=== PATIENT | female | born 1935 | race Caucasian/White ===

== ENCOUNTER 2018-02-11 22:25 | Emergency (ER) | payer OTHER ==
--- OUTSIDE RECORDS SUMMARY | 2018-02-11 22:28 | XMS REPORT | Clinical Summary ---
:1935 Author Organization [facility] Address [address] [place] [address] Care Team Providers Name Role Phone Serafin Kim MD Primary Care Provider Allergies Active Allergy Reactions Severity Noted Date Comments Codeine GI Intolerance 08/12/2017 "vomiting" Morphine (Pf) GI Intolerance Medium 05/02/2017 "vomiting" Current Medications Prescription Sig. Disp. Refills Start Date End Date Status amLODIPine (NORVASC) Take 5 mg by Active 5 mg tablet mouth daily. atorvastatin Take 10 mg by Active (LIPITOR) 10 MG mouth every tablet evening. carvedilol (COREG) Take 12.5 mg Active 12.5 MG tablet by mouth 2 (two) times a day with meals. dronedarone (MULTAQ) Take 400 mg by Active 400 mg tablet mouth 2 (two) times a day with meals. levothyroxine Take 75 mcg by Active (SYNTHROID, LEVOXYL) mouth every 75 mcg tablet morning. lisinopril Take 20 mg by Active (PRINIVIL,ZESTRIL) mouth daily. 20 mg tablet metFORMIN Take 1,000 mg Active (GLUCOPHAGE) 1,000 by mouth 2 mg tablet (two) times a day with meals. omeprazole Take 20 mg by Active (PriLOSEC) 20 MG mouth daily. capsule Take 1 tablet Active vit,[id number] by mouth c 29 mg iron- 1 mg daily. tablet per tablet ascorbic acid, Take 1,000 mg Active vitamin C, (VITAMIN by mouth C) 500 MG tablet daily. ibuprofen Take 200 mg by Active (ADVIL,MOTRIN) 200 mouth every 6 MG tablet (six) hours as needed for mild pain. cetirizine (ZyrTEC) Take 10 mg by Active 10 MG tablet mouth nightly. L. RHAMNOSUS Take 1 tablet Active GG/INULIN by mouth (CULTURELLE daily. PROBIOTICS ORAL) acetaminophen Take 650 mg by Active (TYLENOL) 325 MG mouth every 4 tablet (four) hours as needed. albuterol (PROAIR Inhale 2 puffs Active HFA,PROVENTIL every 6 (six) HFA,VENTOLIN HFA) 90 hours as mcg/actuation needed for inhaler wheezing. ZOFRAN 4 mg Take 1 tablet 30 tablet 0 09/16/2017 Active tabletIndications: (4 mg total) Nausea by mouth every 6 (six) hours as needed for nausea or vomiting. levocetirizine Take 5 mg by Discontinued (XYZAL) 5 MG tablet mouth every 8 evening. aspirin (ECOTRIN) 81 Take 81 mg by Discontinued MG enteric coated mouth daily. 8 tablet ipratropium 2 sprays into Discontinued (ATROVENT) 0.03 % each nostril 8 nasal spray every 12 (twelve) hours. traMADol (ULTRAM) 50 Take 1 tablet 10 tablet 0 09/15/2017 mg tablet (50 mg total) 8 by mouth every 6 (six) hours as needed for moderate pain for up to 5 days. calcium carbonate Chew 2 tablets 120 tablet 0 09/15/2017 (TUMS) 200 mg (1,000 mg 8 calcium (500 mg) total) 2 (two) chewable tablet times a day for 30 days. aspirin (ECOTRIN) 81 Take 1 tablet 30 tablet 0 09/17/2017 MG enteric coated (81 mg total) 8 tablet by mouth daily for 30 days. Active Problems Problem Noted Date Primary hyperparathyroidism 09/14/2017 Osteopenia of both hips 08/12/2017 Hypercalcemia 06/20/2017 Hyperparathyroidism 06/20/2017 MGUS (monoclonal gammopathy of unknown significance) 06/20/2017 Acquired hypothyroidism 06/20/2017 Encounters Date Type Specialty Care Team Description 09/27/2017 Office Visit General Surgery Tisha Blair, Surgery follow-up MD examination (Primary Dx) 09/16/2017 Orders Only General Surgery Farmer, Nausea (Primary Dx) Saprina 09/14/2017 [facility] General Surgery Tisha Blair, Hyperparathyroidism, - Encounter MD primary 09/15/2017 09/14/2017 Anesthesia Event General Surgery Marcos Higuera MD 09/14/2017 Procedure Pass General Surgery 09/14/2017 Surgery General Surgery Tisha Blair, PARATHYROIDECTOMY W/ RIGHT THYROID LOBECTOMY 08/12/2017 Pre-Admit Testing Pre-Admission Tisha Blair, Preop testing ( Primary Appointment Testing MD Dx) 08/12/2017 Office Visit General Surgery Tisha Blair, Hyperparathyroidism ( Primary Dx); Acquired hypothyroidism; Hypercalcemia; Osteopenia of both hips 08/12/2017 Anesthesia Event Pre-Admission Dayna Hurd, LIVE IN COMPANION 07/28/2017 Telephone Endocrinology Fortunato Bone MD 07/18/2017 [facility] Radiology Fortunato Bone MD 07/18/2017 [facility] Radiology Fortunato Bone MD 07/12/2017 Orders Only Endocrinology Ann Chanel MD 07/01/2017 Orders Only Endocrinology Demetrio Ulloa MA (Primary Dx) 06/24/2017 Orders Only Endocrinology Fortunato Bone MD 06/20/2017 Office Visit Endocrinology Fortunato Bone Hyperparathyroidism ( Primary Dx); MD Edwardo MGUS (monoclonal gammopathy of unknown significance); Hypercalcemia; Acquired hypothyroidism 05/02/2017 [facility] Radiology Christensen, Spinal stenosis of lumbar Encounter nickolas Arauz, unspecified whether neurogenic claudication present 05/02/2017 [facility] Radiology Christensen, Spinal stenosis of lumbar Encounter nickolas Arauz, unspecified whether neurogenic claudication present 04/26/2017 Transcribe Orders Radiology Amparo Spinal stenosis of lumbar nickolas Arauz, unspecified whether neurogenic claudication present (Primary Dx) after 02/10/2017 Family History Medical History Relation Name Comments Cancer Father 1952- colon Stroke Mother Relation Name Status Comments Father Mother smoker Social History Tobacco Use Types Packs/Day Years Used Date Never Smoker Smokeless Tobacco: Never Used Tobacco Cessation: Counseling Given: No Alcohol Use Drinks/Week oz/Week Comments No Sex Assigned at Date Recorded Not on file Last Filed Vital Signs Vital Sign Reading Time Taken Blood Pressure 125/58 09/27/2017 2:42 PM CDT Pulse 70 09/27/2017 2:42 PM CDT Temperature 36.4 C (97.5 F) 09/27/2017 2:42 PM CDT Respiratory Rate 18 09/15/2017 7:52 AM CDT Oxygen Saturation 92% 09/27/2017 2:42 PM CDT Inhaled Oxygen Concentration - - Weight 77.6 kg (171 lb) 09/27/2017 2:42 PM CDT Height 167.6 cm (5' 6") 09/27/2017 2:42 PM CDT Body Mass Index 27.6 09/27/2017 2:42 PM CDT Plan of Treatment Health Maintenance Due Date Last Done Comments SHINGRIX VACCINE (#1) 12/03/1987 ZOSTER VACCINE 1997 PNEUMOCOCCAL POLYSACCHARIDE VACCINE AGE 65 AND OVER 2002 PNEUMOCOCCAL-13 2002 INFLUENZA VACCINE 12/28/2017 Implants Implanted Type Area Boiler Washer Device Expiration Model / Identifier Date Serial / Lot Clip Ligtng Weck Hemoclip Plus W/ Tape Ti Sm - [id number] Medical N/A: WECK CLOSURE [id number] / Implanted: 09/14/2017 (Quantity not on file) Clips for Neck SYSTEMS / Internal Use Clip Ligtng Weck Hemoclip Plus W/ Tape Ti Med - [id number] Medical N/A: [employer] [id number] / Implanted: 09/14/2017 (Quantity not on file) Clips for Neck / Internal Use Procedures Procedure Name Priority Date/Time Associated Comments Diagnosis POC GLUCOSE Routine 09/15/2017 7:53 Results for this AM CDT procedure are in the results section. ZZESTIMATED GFR Routine 09/15/2017 1:40 Results for this AM CDT procedure are in the results section. MAGNESIUM LEVEL Routine 09/15/2017 1:40 Results for this AM CDT procedure are in the results section. BASIC METABOLIC PANEL Routine 09/15/2017 1:40 Results for this AM CDT procedure are in the results section. PARATHYROID HORMONE Routine 09/15/2017 1:40 Results for this AM CDT procedure are in the results section. POC GLUCOSE Routine 09/14/2017 9:42 Results for this PM CDT procedure are in the results section. POC GLUCOSE Routine 09/14/2017 5:08 Results for this PM CDT procedure are in the results section. POC GLUCOSE Routine 09/14/2017 1:45 Results for this PM CDT procedure are in the results section. CALCIUM LEVEL Routine 09/14/2017 12:40 Results for this PM CDT procedure are in the results section. POC GLUCOSE Routine 09/14/2017 12:06 Results for this PM CDT procedure are in the results section. PARATHYROID HORMONE STAT 09/14/2017 11:21 Results for this AM CDT procedure are in the results section. PTH INTRAOPERATIVE STAT 09/14/2017 9:45 Results for this AM CDT procedure are in the results section. PTH INTRAOPERATIVE STAT 09/14/2017 9:39 Results for this AM CDT procedure are in the results section. SURGICAL PATHOLOGY Routine 09/14/2017 9:38 Results for this REQUEST AM CDT procedure are in the results section. PTH INTRAOPERATIVE STAT 09/14/2017 9:34 Results for this AM CDT procedure are in the results section. ARTERIAL LINE Routine 09/14/2017 9:17 AM CDT Procedure Note - Vielka Cutler CRNA - 09/14/2017 9:17 AM CDT Arterial line Performed by: VIELKA CUTLER Authorized by: MARCOS HIGUERA Patient Location: OR Start Time: 09/14/2017 8:40 AM End Time: 09/14/2017 8:44 AM Staff: Anesthesiologist: MARCOS HIGUERA Performed by: Anesthesiologist Pre-procedure: patient identified, IV checked, site and side verified, risks and benefits discussed, procedure verified, surgical consent complete, patient position confirmed, monitors and equipment checked and pre-op evaluation complete MSBT: antiseptic used, all elements of maximal sterile barrier technique followed, hand hygiene performed, cap/gown used by other personnel and solutions labeled TIme Out Performed: 09/14/2017 8:40 AM Indications: Indications comment: Intraoperative PTH levels Anesthesia: Anesthesia: General Procedure Details: Arterial Line placement: Placed post induction Line placement site: Radial Line placement side: Right Arterial line gauge: 20 G Number of attempts: 1 Ultrasound guidance used: Yes Post-procedure: Post-procedure: Sterile dressing applied Post procedure circulation, sensation, movement: Normal and unchanged Patient tolerance: Patient tolerated the procedure well with no immediate complications WI AN ELECTIVE ENDOTRACHEAL AIRWAY Routine 09/14/2017 9:08 AM CDT Procedure Note - Vielka Cutler CRNA - 09/14/2017 9:08 AM CDT Airway Date/Time: 09/14/2017 8:38 AM Performed by: VIELKA CUTLER Authorized by: MARCOS HIGUERA Location: OR Urgency: Elective Difficult Airway: No Preoxygenated with 100% O2: Yes C-spine Precautions Maintained Throughout: Yes Mask Ventilation: Not attempted Final Airway Type: Endotracheal airway Final Endotracheal Airway: ETT Technique Used: Direct laryngoscopy Insertion Site: Oral Blade Type: Metzger Laryngoscope Blade/Videolaryngoscope Blade Size: 2 ETT Size (mm): 7.0 Measured from: Gums ETT to Gums (cm): 21 Placement Verified by: CO2 detection, direct visualization and equal breath sounds Laryngoscopic view: Grade I - full view of glottis Rapid Sequence Induction (RSI): Yes Number of Attempts at Approach: 1 After reaching the OR, patient complained of nausea. Waited 3-4 minutes and nausea had abated somewhat but did RSI to minimize risk of aspiration. Easy quick intubation with no secretions noted in oropharynx. EXPLORATION, NECK, WITH 09/14/2017 8:00 AM Hyperparathyroidism, primary PARATHYROIDECTOMY CDT Case Notes POSSIBLE EXTENDED RECOVERY NEEDED; INTRA OP ULTRA SOUND EST 4.5 HRS Special Needs POSSIBLE EXTENDED RECOVERY NEEDED; INTRA OP ULTRA SOUND EST 4.5 HRS POC GLUCOSE Routine 09/14/2017 7:56 Results for AM CDT this procedure are in the results section. PTH INTRAOPERATIVE STAT 09/14/2017 7:50 Results for AM CDT this procedure are in the results section. TYPE AND SCREEN STAT 09/14/2017 7:50 Results for AM CDT this procedure are in the results section. ZZESTIMATED GFR Routine 08/12/2017 4:18 Results for PM CDT this procedure are in the results section. HEMOGLOBIN A1C Routine 08/12/2017 4:18 Preop testing Results for PM CDT this procedure are in the results section. COMPREHENSIVE Routine 08/12/2017 4:18 Preop testing Results for METABOLIC PANEL PM CDT this procedure are in the results section. HC COMPLETE BLD COUNT Routine 08/12/2017 4:18 Preop testing Results for W/AUTO DIFF PM CDT this procedure are in the results section. NM PARATHYROID PLANAR Routine 07/18/2017 11:20 Hyperparathyroidism Results for W SPECT AND CT AM TRENCH TRIMMER FINE this procedure are in the results section. BONE DENSITY Routine 07/12/2017 12:00 AM TRENCH TRIMMER FINE CALCIUM LEVEL, URINE, Routine 06/24/2017 10:31 Results for 24 HOUR AM TRENCH TRIMMER FINE this procedure are in the results section. T4, FREE Routine 06/20/2017 11:35 Acquired hypothyroidism Results for AM TRENCH TRIMMER FINE this procedure are in the results section. THYROID STIMULATING Routine 06/20/2017 11:35 Acquired hypothyroidism Results for HORMONE AM TRENCH TRIMMER FINE this procedure are in the results section. IONIZED CALCIUM Routine 06/20/2017 11:35 Hyperparathyroidism Results for AM TRENCH TRIMMER FINE Hypercalcemia this procedure are in the results section. BASIC METABOLIC PANEL Routine 06/20/2017 11:35 Hyperparathyroidism Results for AM TRENCH TRIMMER FINE Hypercalcemia this procedure are in the results section. PARATHYROID HORMONE Routine 06/20/2017 11:35 Hyperparathyroidism Results for AM TRENCH TRIMMER FINE Hypercalcemia this procedure are in the results section. CT POST MYELOGRAM Routine 05/02/2017 11:50 Spinal stenosis of lumbar Results for LUMBAR AM TRENCH TRIMMER FINE region, unspecified this procedure whether neurogenic are in the claudication present results section. IR MYELOGRAM LUMB Routine 05/02/2017 10:55 Spinal stenosis of lumbar Results for INCL INJ W S&I AM TRENCH TRIMMER FINE region, unspecified this procedure whether neurogenic are in the claudication present results section. after 02/10/2017 Results POC glucose (09/15/2017 7:53 AM)Only the most recent of6 resultswithin the time period is included. POC glucose 112 (H) 65 - 99 mg/dL [facility] DEPARTMENT OF PATHOLOGY AND Comment: GENOMIC MEDICINE [facility] Notified RN Meter ID: [id number] Linux System Engineer: Mumtaz Chang Organization Address City/State/Zipcode Phone Number [facility] DEPARTMENT OF PATHOLOGY AND [address] [place] [address] [place] MEDICINE Estimated GFR (09/15/2017 1:40 AM)Only the most recent of2 resultswithin the time period is included. GFR Non Af Amer 81 mL/min/1.73 m2 [facility] DEPARTMENT OF PATHOLOGY AND GENOMIC MEDICINE GFR Af Amer >90 mL/min/1.73 m2 [facility] DEPARTMENT OF Comment: PATHOLOGY AND GENOMIC Chronic kidney disease: <60 mL/min/1.73m2 MEDICINE Kidney failure: <15 mL/min/1.73m2 The estimated GFR is calculated from the IDMS-traceable Modification of Diet in Renal Disease Equation. The accuracy of the calculation is poor when the creatinine is normal. Calculated values >90 mL/min/1.73m2 are not reported. This equation has not been validated in children (<18 years), women, the elderly (>70 years), or ethnic groups other than Caucasians and Americans. Specimen Plasma specimen Performing Organization Address City/[facility] Phone Number [facility] DEPARTMENT OF PATHOLOGY AND [address] [place] [address] Parathyroid hormone (09/15/2017 1:40 AM)Only the most recent of3 resultswithin the time period is included. PTH <15 (A) 15 - 65 pg/mL [facility] DEPARTMENT OF PATHOLOGY AND GENOMIC MEDICINE Specimen Blood Performing Organization Address [facility] Phone Number [facility] DEPARTMENT OF PATHOLOGY AND [address] [place] [address] Magnesium level (09/15/2017 1:40 AM) Magnesium 1.5 (L) 1.6 - 2.4 mg/dL [facility] DEPARTMENT OF PATHOLOGY AND GENOMIC MEDICINE Specimen Plasma specimen Performing Organization Address [facility] Phone Number [facility] DEPARTMENT OF PATHOLOGY AND [address] [place] [address] Basic metabolic panel (09/15/2017 1:40 AM)Only the most recent of2 resultswithin the time period is included. Sodium 136 135 - 148 mEq/L [facility] DEPARTMENT OF PATHOLOGY AND GENOMIC MEDICINE Potassium 4.2 3.5 - 5.0 mEq/L [facility] DEPARTMENT OF PATHOLOGY AND GENOMIC MEDICINE Chloride 97 (L) 98 - 112 mEq/L [facility] DEPARTMENT OF PATHOLOGY AND GENOMIC MEDICINE CO2 28 24 - 31 mEq/L [facility] DEPARTMENT OF PATHOLOGY AND GENOMIC MEDICINE Anion gap 11 7 - 15 mEq/L [facility] DEPARTMENT OF PATHOLOGY Comment: [facility] Starting from August , anion gap calculation no longer incorporates potassium. Please note the change. BUN 10 8 - 23 mg/dL [facility] DEPARTMENT OF PATHOLOGY AND GENOMIC MEDICINE Creatinine 0.7 0.5 - 0.9 mg/dL [facility] DEPARTMENT OF PATHOLOGY AND GENOMIC MEDICINE Glucose 100 (H) 65 - 99 mg/dL [facility] DEPARTMENT OF PATHOLOGY AND GENOMIC MEDICINE Calcium 8.9 8.8 - 10.2 mg/dL [facility] DEPARTMENT OF PATHOLOGY AND GENOMIC MEDICINE Specimen Plasma specimen Performing Organization Address [facility] Phone Number [facility] DEPARTMENT OF PATHOLOGY AND [address] [place] [address] Calcium level (09/14/2017 12:40 PM) Calcium 9.7 8.8 - 10.2 mg/dL [facility] DEPARTMENT OF PATHOLOGY AND GENOMIC MEDICINE Specimen Plasma specimen Performing Organization Address City/[facility] Phone Number [facility] DEPARTMENT OF PATHOLOGY AND [address] [place] [address] GENOMIC MEDICINE PTH intraoperative (09/14/2017 9:45 AM)Only the most recent of4 resultswithin the time period is included. Intraoperative PTH 20 15 - 65 pg/mL [facility] DEPARTMENT OF PATHOLOGY AND GENOMIC MEDICINE Performing Organization Address City/[facility] Phone Number [facility] DEPARTMENT OF PATHOLOGY AND [address] [place] [address] GENOMIC MEDICINE Surgical pathology request (09/14/2017 9:38 AM) [facility] DEPARTMENT OF PATHOLOGY AND GENOMIC MEDICINE Surgical pathology report See link below for PDF [facility] DEPARTMENT OF Lab Report PATHOLOGY AND GENOMIC MEDICINE Result status This is Final Report to [facility] DEPARTMENT OF [id number] PATHOLOGY AND GENOMIC MEDICINE Performing Organization Address [facility] Phone Number [facility] DEPARTMENT OF PATHOLOGY AND [address] [place] [address] GENOMIC MEDICINE Type and screen (09/14/2017 7:50 AM) ABO grouping A [facility] DEPARTMENT OF PATHOLOGY AND GENOMIC MEDICINE Rh type POS [facility] DEPARTMENT OF PATHOLOGY AND GENOMIC MEDICINE Antibody screen (gel) NEG [facility] DEPARTMENT OF PATHOLOGY AND GENOMIC MEDICINE Specimen Blood Performing Organization Address [facility] Phone Number [facility] DEPARTMENT OF PATHOLOGY AND [address] [place] [address] GENOMIC MEDICINE CBC with platelet and differential (08/12/2017 4:18 PM) WBC 6.77 4.50 - 11.00 k/uL [facility] DEPARTMENT OF PATHOLOGY AND GENOMIC MEDICINE RBC 4.21 4.20 - 5.50 m/uL [facility] DEPARTMENT OF PATHOLOGY AND GENOMIC MEDICINE HGB 13.3 12.0 - 16.0 g/dL [facility] DEPARTMENT OF PATHOLOGY AND GENOMIC MEDICINE HCT 41.7 37.0 - 47.0 % [facility] DEPARTMENT OF PATHOLOGY AND GENOMIC MEDICINE MCV 99.0 82.0 - 100.0 fL [facility] DEPARTMENT OF PATHOLOGY AND GENOMIC MEDICINE MCH 31.6 27.0 - 34.0 pg [facility] DEPARTMENT OF PATHOLOGY AND GENOMIC MEDICINE MCHC 31.9 31.0 - 37.0 g/dL [facility] DEPARTMENT OF PATHOLOGY AND GENOMIC MEDICINE RDW - SD 56.9 (H) 37.0 - 55.0 fL [facility] DEPARTMENT OF PATHOLOGY AND GENOMIC MEDICINE MPV 9.8 8.8 - 13.2 fL [facility] DEPARTMENT OF PATHOLOGY AND GENOMIC MEDICINE Platelet count 260 150 - 400 k/uL [facility] DEPARTMENT OF PATHOLOGY AND GENOMIC MEDICINE Nucleated RBC 0.00 /100 WBC [facility] DEPARTMENT OF PATHOLOGY AND GENOMIC MEDICINE Neutrophils 38.7 (L) 39.0 - 69.0 % [facility] DEPARTMENT OF PATHOLOGY AND GENOMIC MEDICINE Lymphocytes 47.3 (H) 25.0 - 45.0 % [facility] DEPARTMENT OF PATHOLOGY AND GENOMIC MEDICINE Monocytes 8.3 0.0 - 10.0 % [facility] DEPARTMENT OF PATHOLOGY AND GENOMIC MEDICINE Eosinophils 5.0 0.0 - 5.0 % [facility] DEPARTMENT OF PATHOLOGY AND GENOMIC MEDICINE Basophils 0.4 0.0 - 1.0 % [facility] DEPARTMENT OF PATHOLOGY AND GENOMIC MEDICINE Immature granulocytes 0.3Comment: 0.0 - 1.0 % [facility] DEPARTMENT OF "Immature PATHOLOGY AND GENOMIC granulocytes" MEDICINE (promyelocytes, myelocytes, metamyelocytes) Specimen Blood Performing Organization Address City/State/Zipcode Phone Number [facility] DEPARTMENT OF PATHOLOGY AND [address] [place] [phone] [facility] Hemoglobin A1c (08/12/2017 4:18 PM) Hemoglobin A1C 5.8 (H) 4.0 - 5.6 % [facility] DEPARTMENT OF PATHOLOGY Comment: AND GENOMIC MEDICINE HbA1c cutoffs for diagnosing diabetes: 4.0% - 5.6%=normal 5.7% - 6.4%=increased risk for diabetes (prediabetes) >=6.5%=diabetes Goals for glycemic control (ADA 2016) < 7.0%Target for non adults with diabetes. More or less stringent targets may be appropriate for individual patients. <7.5% Target for Children and adolescents with type 1 diabetes. Specimen Blood Performing Organization Address City/State/Zipcode Phone Number [facility] DEPARTMENT OF PATHOLOGY AND [address] [place] [phone] [place] [facility] Comprehensive metabolic panel (08/12/2017 4:18 PM) Sodium 139 135 - 148 mEq/L [facility] DEPARTMENT OF PATHOLOGY AND GENOMIC MEDICINE Potassium 4.8 3.5 - 5.0 mEq/L [facility] DEPARTMENT OF PATHOLOGY AND GENOMIC MEDICINE Chloride 100 98 - 112 mEq/L [facility] DEPARTMENT OF PATHOLOGY AND GENOMIC MEDICINE CO2 26 24 - 31 mEq/L [facility] DEPARTMENT OF PATHOLOGY AND GENOMIC MEDICINE Anion gap 13 7 - 15 mEq/L [facility] DEPARTMENT OF Comment: PATHOLOGY AND GENOMIC Starting from August , anion gap calculation MEDICINE no longer incorporates potassium. Please note the change. BUN 16 8 - 23 mg/dL [facility] DEPARTMENT OF PATHOLOGY AND GENOMIC MEDICINE Creatinine 0.8 0.5 - 0.9 mg/dL [facility] DEPARTMENT OF PATHOLOGY AND GENOMIC MEDICINE Glucose 87 65 - 99 mg/dL [facility] DEPARTMENT OF PATHOLOGY AND GENOMIC MEDICINE Calcium 11.0 (H) 8.8 - 10.2 mg/dL [facility] DEPARTMENT OF PATHOLOGY AND GENOMIC MEDICINE Protein 7.1 6.3 - 8.3 g/dL [facility] DEPARTMENT OF Comment: PATHOLOGY AND GENOMIC 4.6-7.0 g/dL MEDICINE 1 week 4.4-7.6 g/dL 7 months-1year5.1-7.3 g/dL 1-2 years5.6-7.5 g/dL >3 years6.0-8.0 g/dL 18-150 6.3-8.3 g/dL Albumin 3.8 3.5 - 5.0 g/dL [facility] DEPARTMENT OF PATHOLOGY AND GENOMIC MEDICINE A/G ratio 1.2 0.7 - 3.8 [facility] DEPARTMENT OF PATHOLOGY AND GENOMIC MEDICINE Alkaline phosphatase 76 35 - 104 U/L [facility] DEPARTMENT OF PATHOLOGY AND GENOMIC MEDICINE AST 25 10 - 35 U/L [facility] DEPARTMENT OF PATHOLOGY AND GENOMIC MEDICINE ALT 33 5 - 50 U/L [facility] DEPARTMENT OF PATHOLOGY AND GENOMIC MEDICINE Total bilirubin 0.5 0.0 - 1.2 mg/dL [facility] DEPARTMENT OF PATHOLOGY AND GENOMIC MEDICINE Specimen Plasma specimen Performing Organization Address City/State/Zipcode Phone Number [facility] DEPARTMENT OF PATHOLOGY AND [address] [place] [address] [facility] Parathyroid Planar W Spect And Ct (07/18/2017 11:20 AM) Narrative Performed At PROCEDURE:NM PARATHYROID PLANAR [facility] INDICATION:Hyperparathyroidism. TECHNIQUE: The patient was injected with 25 mCi of Tc-99m sestamibi, IV. Immediately after injection, planar and SPECT-CT imaging of the neck and chest was performed. Approximately three hours after injection, repeat planar images of the neck and chest were acquired. FINDINGS:Increased uptake is only noted on early imaging involving a calcified lesion which appears to emanate from the right mid to lower thyroid.It is best seen on series 4, image 60, measuring approximately 1 cm.No abnormal tracer retention is seen on delayed images.No abnormal uptake is seen outside the thyroid bed. IMPRESSION: 1.Calcified lesion immediately adjacent to or within the right thyroid lobe may reflect a primary thyroid malignancy or intrathyroidal parathyroid adenoma. [facility]-[id number] Procedure Note Interface, Radiology Results Incoming - 07/18/2017 11:53 AM TRENCH TRIMMER FINE PROCEDURE: NM PARATHYROID PLANAR W SPECT AND CT INDICATION: Hyperparathyroidism. TECHNIQUE: The patient was injected with 25 mCi of Tc-99m sestamibi, IV. Immediately after injection, planar and SPECT-CT imaging of the neck and chest was performed. Approximately three hours after injection, repeat planar images of the neck and chest were acquired. FINDINGS: Increased uptake is only noted on early imaging involving a calcified lesion which appears to emanate from the right mid to lower thyroid. It is best seen on series 4, image 60, measuring approximately 1 cm. No abnormal tracer retention is seen on delayed images. No abnormal uptake is seen outside the thyroid bed. IMPRESSION: 1. Calcified lesion immediately adjacent to or within the right thyroid lobe may reflect a primary thyroid malignancy or intrathyroidal parathyroid adenoma. [facility]-[id number] Performing Organization Address City/State/Zipcode Phone Number [facility] [address] [place] [address] Bone Density (07/12/2017) Narrative Performed At Calcium level, urine, 24 hour (06/24/2017 10:31 AM) Calcium, 24 hour urine 291 (H) mg/24 h [employer] [place] Comment: Reference Range35- 250 Low calcium diet 35-200 URINE VOLUME: 1500/24 Narrative Performed At FASTING:NO QUEST FASTING: NO Resulting Agency Comment Performing Organization Information: Site ID: [id number] Name: [facility] Address: [address] [place] [address] Director: Deja Escalera MD Performing Organization Address City/State/Zipcode Phone Number [employer] [place] [address] [place] [address] Thyroid stimulating hormone (06/20/2017 11:35 AM) TSH 1.35 0.40 - 4.50 mIU/L [employer] [place] Specimen Blood Narrative Performed At FASTING:NO QUEST FASTING: NO Resulting Agency Comment Performing Organization Information: Site ID: [id number] Name: [email or web address] [facility] Address: [address] [place] [phone] Director: Deja Escalera MD Performing Organization Address [facility] Phone Number [facility] [employer] [address] [address] T4, free (06/20/2017 11:35 AM) T4, free 1.5 0.8 - 1.8 ng/dL [facility] [employer] [place] Specimen Blood Narrative Performed At FASTING:NO QUEST FASTING: NO Resulting Agency Comment Performing Organization Information: Site ID: [id number] Name: [email or web address] [facility] Address: [address] [place] [id number] Director: Deja Escalera MD Performing Organization Address [facility] Phone Number [facility] [place] [address] Ionized calcium (06/20/2017 11:35 AM) Ionized calcium 6.2 (H) 4.8 - 5.6 mg/dL [employer] Specimen Blood Narrative Performed At FASTING:NO QUEST FASTING: NO Resulting Agency Comment Performing Organization Information: Site ID: [id number] Name: [facility] Address: [address] [place] [phone] Director: Dr. Filippo Delatorre Performing Organization Address [facility] Phone Number [employer] [address] [address] [address] Post Myelogram Lumbar (05/02/2017 11:50 AM) Narrative Performed At EXAMINATION:CT POST MYELOGRAM LUMBAR HM [facility] CLINICAL HISTORY:M48.061 Spinal stenosislumbar region without neurogenic claudication, SPINAL STENOSIS COMPARISON:Lumbar myelogram on 05/02/2017. TECHNIQUE: Lumbar CT myelogram with multiplanar reconstruction after intrathecal instillation of contrast performed using radiation dose reduction techniques.Technical factors are evaluated and adjusted to ensure appropriate moderation of exposure. Automated dose management technology is applied to adjust radiation exposure while achieving a diagnostic quality image. FINDINGS: There are 5 lumbar type vertebrae, and the last functional disc is presumed to be L5-S1. There are postoperative changes from L5-S1 posterior fusion with solid osseous fusion of bilateral facet joints. There are also questionable postoperative changes from left L4-5 hemilaminotomy. There is straightening of normal lumbar lordosis without malalignment. The L2-3, L3-4, L4-5 discs are at least moderately narrowed with vacuum phenomenon and adjacent chronic discogenic endplate changes and chronic-appearing Schmorl's nodes. There is no evidence of acute fracture, suspicious osteolytic or osteoblastic lesion. The distal spinal cord appears unremarkable. The conus medullaris terminates at the inferior L1 level and appears unremarkable. There is evidence of arachnoiditis with clumped appearance of left and right cauda equina between L3-4 and L4-5 levels. L5-S1: There is solid fusion of bilateral facet joints. There is posterior endplate osteophyte with no significant spinal canal or neural foraminal stenosis. L4-5: There are questionable postoperative changes from left hemilaminotomy. Combination of left-eccentric disc osteophyte complex, moderate bilateral facet arthropathy, and residual ligamentum flavum thickening results in bilateral subarticular lateral recess stenoses encroaching on traversing L5 nerve roots. There is superimposed mild central spinal canal stenosis (AP diameter 6-7 mm) crowding the remaining traversing cauda equina. There is evidence of arachnoiditis with clumped appearance of left more than right cauda equina nerve roots. There is moderate left neural foraminal stenosis with left lateral endplate osteophyte encroaching on the foraminal-extraforaminal segments of the exiting left L4 nerve root. There is mild right neural foraminal stenosis. L3-4: Combination of disc bulge, mild-moderate left more than right facet arthropathy, and ligamentum flavum thickening results in bilateral subarticular lateral recess stenoses and mild central spinal canal stenosis (AP diameter 6-7 mm) crowding the traversing cauda equina, possibly encroaching on the traversing L4 nerve roots. There is evidence of arachnoiditis with clumped appearance of bilateral cauda equina nerve roots. There are mild bilateral neural foraminal stenoses. L2-3: Combination of right-eccentric disc osteophyte complex, mild-moderate right more than left facet arthropathy, and relative right ligamentum flavum thickening results in right subarticular lateral recess stenosis encroaching on traversing right L3 nerve root. There is superimposed mild central spinal canal stenosis (AP diameter 7 mm) crowding the remaining traversing cauda equina. There is moderate right neural foraminal stenosis with right lateral endplate osteophyte encroaching on the foraminal-extraforaminal segments of the exiting right L2 nerve root. There is mild left neural foraminal stenosis. L1-2: Combination of mild disc bulge with superimposed small right foraminal disc protrusion results in mild right neural foraminal stenosis. There is no significant spinal canal stenosis. T12-L1: There is no significant posterior disc pathology, spinal canal or neural foraminal stenosis. There is moderate diffuse fatty atrophy of bilateral posterior paraspinal muscles, likely from deconditioning. There are mild osteoarthritic changes of bilateral sacroiliac joints. IMPRESSION: 1. Postoperative changes from L5-S1 posterior fusion with solid osseous fusion of bilateral facet joints and questionable postoperative changes from left L4-5 hemilaminotomy. 2. Evidence of arachnoiditis with clumped cauda equina between L3-4 and L4-5 levels. 3. At L4-5, spondylosis results in spinal canal stenosis including bilateral subarticular lateral recess stenoses encroaching on the traversing L5 nerve roots and moderate left neural foraminal stenosis with left lateral endplate osteophyte encroaching on foraminal-extraforaminal segments of exiting left L4 nerve root. 4. At L3-4, spondylosis results in spinal canal stenosis including bilateral subarticular lateral recess stenoses possibly encroaching on the traversing L4 nerve roots. 5. At L2-3, spondylosis results in right subarticular lateral recess stenosis encroaching on the traversing right L3 nerve root and moderate right neural foraminal stenosis with right lateral endplate osteophyte encroaching on the foraminal-extraforaminal segments of the exiting right L2 nerve root. [facility]-[id number] Procedure Note Hm Interface, Radiology Results Incoming - 05/02/2017 2:43 PM TRENCH TRIMMER FINE EXAMINATION: CT POST MYELOGRAM LUMBAR CLINICAL HISTORY: M48.061 Spinal stenosis lumbar region without neurogenic claudication, SPINAL STENOSIS COMPARISON: Lumbar myelogram on 05/02/2017. TECHNIQUE: Lumbar CT myelogram with multiplanar reconstruction after intrathecal instillation of contrast performed using radiation dose reduction techniques. Technical factors are evaluated and adjusted to ensure appropriate moderation of exposure. Automated dose management technology is applied to adjust radiation exposure while achieving a diagnostic quality image. FINDINGS: There are 5 lumbar type vertebrae, and the last functional disc is presumed to be L5-S1. There are postoperative changes from L5-S1 posterior fusion with solid osseous fusion of bilateral facet joints. There are also questionable postoperative changes from left L4-5 hemilaminotomy. There is straightening of normal lumbar lordosis without malalignment. The L2-3 , L3-4, L4-5 discs are at least moderately narrowed with vacuum phenomenon and adjacent chronic discogenic endplate changes and chronic-appearing Schmorl's nodes. There is no evidence of acute fracture, suspicious osteolytic or osteoblastic lesion. The distal spinal cord appears unremarkable. The conus medullaris terminates at the inferior L1 level and appears unremarkable. There is evidence of arachnoiditis with clumped appearance of left and right cauda equina between L3- 4 and L4-5 levels. L5-S1: There is solid fusion of bilateral facet joints. There is posterior endplate osteophyte with no significant spinal canal or neural foraminal stenosis. L4-5: There are questionable postoperative changes from left hemilaminotomy. Combination of left-eccentric disc osteophyte complex, moderate bilateral facet arthropathy, and residual ligamentum flavum thickening results in bilateral subarticular lateral recess stenoses encroaching on traversing L5 nerve roots. There is superimposed mild central spinal canal stenosis (AP diameter 6-7 mm) crowding the remaining traversing cauda equina. There is evidence of arachnoiditis with clumped appearance of left more than right cauda equina nerve roots. There is moderate left neural foraminal stenosis with left lateral endplate osteophyte encroaching on the foraminal-extraforaminal segments of the exiting left L4 nerve root. There is mild right neural foraminal stenosis. L3-4: Combination of disc bulge, mild-moderate left more than right facet arthropathy, and ligamentum flavum thickening results in bilateral subarticular lateral recess stenoses and mild central spinal canal stenosis (AP diameter 6-7 mm) crowding the traversing cauda equina, possibly encroaching on the traversing L4 nerve roots. There is evidence of arachnoiditis with clumped appearance of bilateral cauda equina nerve roots. There are mild bilateral neural foraminal stenoses. L2-3: Combination of right-eccentric disc osteophyte complex, mild-moderate right more than left facet arthropathy, and relative right ligamentum flavum thickening results in right subarticular lateral recess stenosis encroaching on traversing right L3 nerve root. There is superimposed mild central spinal canal stenosis (AP diameter 7 mm) crowding the remaining traversing cauda equina. There is moderate right neural foraminal stenosis with right lateral endplate osteophyte encroaching on the foraminal-extraforaminal segments of the exiting right L2 nerve root. There is mild left neural foraminal stenosis. L1-2: Combination of mild disc bulge with superimposed small right foraminal disc protrusion results in mild right neural foraminal stenosis. There is no significant spinal canal stenosis. T12-L1: There is no significant posterior disc pathology, spinal canal or neural foraminal stenosis. There is moderate diffuse fatty atrophy of bilateral posterior paraspinal muscles, likely from deconditioning. There are mild osteoarthritic changes of bilateral sacroiliac joints. IMPRESSION: 1. Postoperative changes from L5-S1 posterior fusion with solid osseous fusion of bilateral facet joints and questionable postoperative changes from left L4-5 hemilaminotomy. 2. Evidence of arachnoiditis with clumped cauda equina between L3-4 and L4-5 levels. 3. At L4-5, spondylosis results in spinal canal stenosis including bilateral subarticular lateral recess stenoses encroaching on the traversing L5 nerve roots and moderate left neural foraminal stenosis with left lateral endplate osteophyte encroaching on foraminal-extraforaminal segments of exiting left L4 nerve root. 4. At L3-4, spondylosis results in spinal canal stenosis including bilateral subarticular lateral recess stenoses possibly encroaching on the traversing L4 nerve roots. 5. At L2-3, spondylosis results in right subarticular lateral recess stenosis encroaching on the traversing right L3 nerve root and moderate right neural foraminal stenosis with right lateral endplate osteophyte encroaching on the foraminal-extraforaminal segments of the exiting right L2 nerve root. [facility]-[id number] [facility] Organization Address City/State/Zipcode Phone Number [facility] [address] [place] [address] IR Myelogram Lumb Incl Inj W S&I (05/02/2017 10:55 AM) Narrative Performed At EXAMINATION:IR MYELOGRAM LUMB INCL INJ W S&I HM [facility] CLINICAL HISTORY:M48.061 Spinal stenosislumbar region without neurogenic claudication, M48.062 COMPARISON:None. TECHNIQUE: After informed consent was obtained, the patient was placed prone on the fluoroscopy table. The back was prepped and draped in sterile manner. The L2-3 interspinous space was identified, and 1% lidocaine was used for local anesthesia. Under fluoroscopic guidance, a 3.5-inch 27-gauge Quincke needle was advanced into the L2-3 interspinous space until clear colorless CSF returned from the hub. Subsequently, 12 mL of iohexol 240 was instilled into the thecal sac. The needle was then removed. Multiple views of the lumbar spine were obtained. The patient tolerated the procedure well with no immediate complication. Total Fluoroscopy Time: 0.1 minute. Spot Images: 9. Reference air kerma: 31 mGy. IMPRESSION: There are 5 lumbar type vertebrae, and the last functional disc is presumed to be L5-S1. Known lumbar spinal postoperative changes are not well-visualized. There is mild S-shaped scoliosis of the lumbar spine. No malalignment is appreciated. The L2-3, L3-4, L4-5 discs are at least moderately narrowed with vacuum phenomenon and adjacent chronic discogenic endplate changes. There are prominent endplate osteophytes at L2-3, L3-4, and L4-5, eccentric to the right at L2-3 and eccentric to the left at L4-5. At these levels, there are ventral and dorsal extradural filling defects with evidence of subarticular lateral recess stenoses, eccentric to the right at L2-3 and bilateral at L3-4 and L4-5. Lumbar CT myelogram to follow. [facility]-[id number] Procedure Note Interface, Radiology Results - 05/02/2017 3:00 PM TRENCH TRIMMER FINE EXAMINATION: IR MYELOGRAM LUMB INCL INJ W S&I CLINICAL HISTORY: M48.061 Spinal stenosis lumbar region without neurogenic claudication, M48.062 COMPARISON: None. TECHNIQUE: After informed consent was obtained, the patient was placed prone on the fluoroscopy table. The back was prepped and draped in sterile manner. The L2-3 interspinous space was identified, and 1% lidocaine was used for local anesthesia. Under fluoroscopic guidance, a 3.5-inch 27-gauge Quincke needle was advanced into the L2-3 interspinous space until clear colorless CSF returned from the hub. Subsequently, 12 mL of iohexol 240 was instilled into the thecal sac. The needle was then removed. Multiple views of the lumbar spine were obtained. The patient tolerated the procedure well with no immediate complication. Total Fluoroscopy Time: 0.1 minute. Spot Images: 9. Reference air kerma: 31 mGy. IMPRESSION: There are 5 lumbar type vertebrae, and the last functional disc is presumed to be L5-S1. Known lumbar spinal postoperative changes are not well-visualized. There is mild S-shaped scoliosis of the lumbar spine. No malalignment is appreciated. The L2-3, L3-4, L4-5 discs are at least moderately narrowed with vacuum phenomenon and adjacent chronic discogenic endplate changes. There are prominent endplate osteophytes at L2-3, L3-4, and L4-5, eccentric to the right at L2-3 and eccentric to the left at L4-5. At these levels, there are ventral and dorsal extradural filling defects with evidence of subarticular lateral recess stenoses, eccentric to the right at L2-3 and bilateral at L3-4 and L4-5. Lumbar CT myelogram to follow. [facility]-[id number] [facility] Organization Address City/State/[facility] Phone [facility] [address] [place] [address] after 02/10/2017 Insurance Payer Benefit Plan / Group Subscriber ID Type Phone Address MEDICARE MEDICARE PART A AND B xxxxxxxxxx Medicare [place], [place] [employer] INDEMNITY xxxxxxxxx Indemnity
[2018-02-12 00:38] LABS: Absolute Lymphocytes (CBC) 2.3 K/uL (0.7-4.9); Absolute Monocytes 0.7 K/uL (0.1-1.3); Absolute Neutrophil 3.2 K/uL (1.8-8.0); Basophils % 0.5 % (0-1.3); Eosinophils % 2.9 % (0-4.4); Hematocrit 37.6 % (36.0-45.0); Lymphocytes % 35.8 % (15.3-44.8); MCH 34.1 pg (27.0-35.0); MCV 96.4 fL (80-100); MPV 7.7 fL (7.6-11.3); Monocytes % 11.3 % (3.3-12.3)
[2018-02-12 00:54] LABS: Albumin 3.6 g/dL (3.4-5.0); Bilirubin Direct 0.2 mg/dL (0-0.2); Bilirubin Total 0.9 mg/dL (0.2-1.0); Potassium 4.2 mmol/L (3.5-5.1); Protein, Total 6.5 g/dL (6.4-8.2)
[2018-02-12] MEDS ORDERED: NA CHLORIDE 0.9% 500 ML ONE (01:16)
[2018-02-12 01:59] LABS: Urine Blood NEGATIVE (NEG); Urine Glucose NEGATIVE (NEG); Urine Protein NEGATIVE (NEG); Urine pH 6.5 (5.0-7.0)
--- NOTE | 2018-02-12 03:01 | EDPHYS ---
Physician Documentation [facility] Name: Angelika Garrett Age: 82 yrs Sex: Female : 1935 Arrival Date: 02/11/2018 Time: 22:26 Bed 8 Private MD: William Kim C ED Physician Pablito Renae HPI: 02/12 01:00 This 82 yrs old Female presents to ER via Ambulatory with complaints of High pm1 Blood Pressure, Headache, Vomiting. 01:00 The patient has elevated blood pressure and discovered this at home. Onset: The pm1 symptoms/episode began/occurred 2 day(s) ago. Associated signs and symptoms: Pertinent positives: headache, nausea, vomiting, Pertinent negatives: chest pain, dizziness, weakness, fever. Severity of symptoms: in the emergency department the blood pressure is improved. The patient has not recently seen a physician, the patient's primary care provider is Dr. Kim. Patient presents today with multiple complaints. Her primary complaint is a headache that she feels brought an onset of nausea and vomiting. Headache is located on the scalp. "Anywhere that there is hair." Patient's blood pressure was elevated prior to arrival 180s systolic but it has improved. Other complaints that she has is abdominal cramping with two episodes of diarrhea that she treated at home with Lomotil. Daughter and believe that the diarrhea might be related to changing the 's colostomy bag. She feels that the headache might be related to stressors from the husbands recent colostomy. Also complaining of some leg cramps last night. Patient without any dizziness. Historical: - Allergies: 02/11 22:54 Morphine; fc 22:54 Codeine; fc - Home Meds: 22:54 amlodipine 5 mg oral tab 1 tab once daily [Active]; aspirin 81 mg Oral TbEC 1 tab once fc daily [Active]; atorvastatin 10 mg oral tab 1 tab once daily [Active]; carvedilol 12.5 mg oral tab 1 tab 2 times per day [Active]; dronedarone oral 400 mg oral 1 tab 2 times per day [Active]; Synthroid 75 mcg Oral tab 1 tab once daily [Active]; lisinopril 20 mg Oral tab 1 tab once daily [Active]; metformin 1,000 mg Oral tab 1 tab 2 times per day [Active]; omeprazole 20 mg oral cpDR 1 cap once daily [Active]; ipratropium bromide 0.03 % nasal spry 2 sprays as needed [Active]; Vitamin Oral tab 1 tab once daily [Active]; Vitamin C 1,000 mg Oral tab daily [Active]; ibuprofen 200 mg Oral cap as needed [Active]; Ventolin Rotahaler/Rotacaps Inhl as needed [Active]; citrical twice a day [Active]; - PMHx: 22:54 Diabetes - NIDDM; Hypertension; Atrial Fib; Hypothyroidism; GERD; High Cholesterol; fc - PSHx: 22:54 Appendectomy; parathyroidism; left wrist; right shoulder surg; Knee surgery; spinal fc fusion; Tubal ligation; Tonsillectomy; - Immunization history:: Last tetanus immunization: unknown. - Social history:: Smoking status: Patient/guardian denies using tobacco. - Ebola Screening: : Patient negative for fever greater than or equal to 101.5 degrees Fahrenheit, and additional compatible Ebola Virus Disease symptoms Patient denies exposure to infectious person Patient denies travel to an Ebola-affected area in the 21 days before illness onset. ROS: 02/12 01:00 Constitutional: Negative for fever, chills, and weight loss, Eyes: Negative for injury, pm1 pain, redness, and discharge, ENT: Negative for injury, pain, and discharge, Neck: Negative for injury, pain, and swelling, Cardiovascular: Negative for chest pain, palpitations, and edema, Respiratory: Negative for shortness of breath, cough, wheezing, and pleuritic chest pain, Back: Negative for injury and pain. : Negative for injury, bleeding, discharge, and swelling, MS/Extremity: Negative for injury and deformity, Skin: Negative for injury, rash, and discoloration. Abdomen/GI: Positive for nausea, vomiting, diarrhea, abdominal cramps, Negative for dysphagia, rectal bleeding. Neuro: Positive for headache, Negative for dizziness, weakness. Exam: 01:00 Constitutional: This is a well developed, well nourished patient who is awake, alert, pm1 and in no acute distress. Eyes: Pupils equal round and reactive to light, extra-ocular motions intact. Lids and lashes normal. Conjunctiva and sclera are non-icteric and not injected. Cornea within normal limits. Periorbital areas with no swelling, redness, or edema. 01:00 ENT: Nares patent. No nasal discharge, no septal abnormalities noted. Tympanic membranes are normal and external auditory canals are clear. Oropharynx with no redness, swelling, or masses, exudates, or evidence of obstruction, uvula midline. Mucous membranes moist. Neck: Trachea midline, no thyromegaly or masses palpated, and no cervical lymphadenopathy. Supple, full range of motion without nuchal rigidity, or vertebral point tenderness. No Meningismus. Chest/axilla: Normal chest wall appearance and motion. Nontender with no deformity. No lesions are appreciated. Cardiovascular: Regular rate and rhythm with a normal S1 and S2. No gallops, murmurs, or rubs. Normal PMI, no JVD. No pulse deficits. Respiratory: Lungs have equal breath sounds bilaterally, clear to auscultation and percussion. No rales, rhonchi or wheezes noted. No increased work of breathing, no retractions or nasal flaring. Abdomen/GI: Soft, non-tender, with normal bowel sounds. No distension or tympany. No guarding or rebound. No evidence of tenderness throughout. Back: No spinal tenderness. No costovertebral tenderness. Full range of motion. 01:00 Skin: Warm, dry with normal turgor. Normal color with no rashes, no lesions, and no evidence of cellulitis. MS/ Extremity: Pulses equal, no cyanosis. Neurovascular intact. Full, normal range of motion. 01:00 Head/face: Noted is no obvious of injury or deformity except tenderness, that is mild, of the top of head. 01:00 Neuro: Orientation: is normal, Mentation: is normal, Motor: moves all fours, strength is normal, Sensation: is normal, no obvious gross deficits. Vital Signs: 02/11 22:30 BP 174 / 68; Pulse 63; Resp 20; Temp 98.5(O); Pulse Ox 97% on R/A; Weight 77.11 kg (R); fc Height 5 ft. 5 in. (165.10 cm) (R); Pain 7/10; 23:38 BP 149 / 62; Pulse 60; Resp 20; Pulse Ox 95% on R/A; aa1 02/12 00:46 BP 158 / 64; Pulse 66; Resp 18; Pulse Ox 95% on R/A; aa1 01:44 BP 154 / 67; Pulse 63; Resp 18; Pulse Ox 95% on R/A; aa1 02:38 BP 143 / 59; Pulse 62; Resp 18; Pulse Ox 97% on R/A; aa1 03:20 BP 146 / 62; Pulse 62; Resp 18; Pulse Ox 95% on R/A; Pain 0/10; aa1 02/11 22:30 Body Mass Index 28.29 (77.11 kg, 165.10 cm) fc MDM: 02/11 23:20 Patient medically screened. pm1 02/12 00:15 Refusal of service: The patient/guardian displays adequate decision making capability pm1 and despite a detailed discussion of alternatives, benefits, risks, and consequences refuses: CT scan of abdomen/pelvis and pain medications. 02:42 Data reviewed: vital signs. Data interpreted: Pulse oximetry: on room air is 97 %. pm1 Interpretation: normal. Counseling: I had a detailed discussion with the patient and/or guardian regarding: the historical points, exam findings, and any diagnostic results supporting the discharge/admit diagnosis, lab results, radiology results. 02:45 ED course: Patient offered admission to the hospital for further evaluation and pm1 treatment of hyponatremia. Patient refused admission and wants to go home. Possible causes for patient's hyponatremia based on discussions the patient are: low sodium intake, drinking a little less water than her normal, and two episodes of diarrhea yesterday. Since patient does not want to be admitted, instructed the patient to contact her PCP for reevaluation and repeat labs; and to return to the ER for any concerns or worsening of symptoms. 02/12 00:14 Order name: Amylase, Serum pm1 02/12 00:14 Order name: Basic Metabolic Panel; Complete Time: 01:05 pm02/12 00:14 Order name: CBC with Diff; Complete Time: : pm02/12 00:14 Order name: Hepatic Function; Complete Time: :05 pm02/12 00:14 Order name: Lipase; Complete Time: 01:05 pm02/11 22:50 Order name: EKG; Complete Time: 22:51 aa02/11 22:50 Order name: EKG - Nurse/Tech; Complete Time: 22:50 aa02/12 00:14 Order name: CT Head Brain wo Cont pm1 02/12 00:14 Order name: IV Saline Lock; Complete Time: 00:23 pm1 02/12 00:15 Order name: Amylase Level; Complete Time: 01:05 EDNV 02/12 01:17 Order name: Urine Dipstick--Ancillary (enter results); Complete Time: 02:08 2 02/12 00:14 Order name: Labs collected and sent; Complete Time: 00:23 pm1 02/12 00:14 Order name: Urine Dipstick-Ancillary (obtain specimen); Complete Time: 01:15 pm1 Administered Medications: 01:14 Drug: NS 0.9% 500 ml Route: IV; Rate: bolus; Site: left antecubital; aa1 02:00 Follow up: IV Status: Completed infusion aa1 Disposition: 02/13 03:06 Co-signature as Attending Physician, Pablito Renae MD. Disposition: 02/12/18 03:00 Discharged to Home. Impression: Headache, Hyponatremia. - Condition is Stable. - Discharge Instructions: General Headache Without Cause, Hyponatremia. - Medication Reconciliation Form, Thank You Letter form. - Follow up: Emergency Department; When: As needed; Reason: Worsening of condition. Follow up: William Kim MD; When: 2 - 3 days; Reason: Recheck today's complaints, Continuance of care, Re-evaluation by your physician. - Problem is new. - Symptoms have improved. Signatures: Dispatcher [employer] [facility] Karen Merida RN RN aa1 Bronwyn Oliva RN RN Tony Marin, DOPE POURER DOPE POURER pm1 Pablito Renae MD MD Corrections: (The following items were deleted from the chart) 02/12 00:34 00:15 Creatinine for Radiology+C.LAB.BRZ ordered. [facility] EDNV 03:22 03:00 02/12/2018 03:00 Discharged to Home. Impression: Headache; Hyponatremia. aa1 Condition is Stable. Forms are Medication Reconciliation Form, Thank You Letter, Antibiotic Education, Prescription Opioid Use. Follow up: Emergency Department; When: As needed; Reason: Worsening of condition. Follow up: William Kim; When: 2 - 3 days; Reason: Recheck today's complaints, Continuance of care, Re-evaluation by your physician. Problem is new. Symptoms have improved. pm1
--- NOTE | 2018-02-12 03:01 | ER ---
Nurse's Notes [facility] Name: Angelika Garrett Age: 82 yrs Sex: Female : 1935 Arrival Date: 02/11/2018 Time: 22:26 Bed 8 Private MD: William Kim C Diagnosis: Headache;Hyponatremia Presentation: 02/11 22:30 Presenting complaint: Patient states: that she has not been feeling well over the past fc 2 days. Having high bp, abd soreness, abd cramping, nausea and leg cramps. Also has headache. Transition of care: patient was not received from another setting of care. Onset of symptoms was February 09, 2018. Risk Assessment: Do you want to hurt yourself or someone else? Patient reports no desire to harm self or others. Initial Sepsis Screen: Does the patient meet any 2 criteria? No. Patient's initial sepsis screen is negative. Does the patient have a suspected source of infection? No. Patient's initial sepsis screen is negative. Care prior to arrival: None. 22:30 Method Of Arrival: Ambulatory 22:30 Acuity: GERARDO 3 fc Historical: - Allergies: 22:54 Morphine; fc 22:54 Codeine; fc - Home Meds: 22:54 amlodipine 5 mg oral tab 1 tab once daily [Active]; aspirin 81 mg Oral TbEC 1 tab once fc daily [Active]; atorvastatin 10 mg oral tab 1 tab once daily [Active]; carvedilol 12.5 mg oral tab 1 tab 2 times per day [Active]; dronedarone oral 400 mg oral 1 tab 2 times per day [Active]; Synthroid 75 mcg Oral tab 1 tab once daily [Active]; lisinopril 20 mg Oral tab 1 tab once daily [Active]; metformin 1,000 mg Oral tab 1 tab 2 times per day [Active]; omeprazole 20 mg oral cpDR 1 cap once daily [Active]; ipratropium bromide 0.03 % nasal spry 2 sprays as needed [Active]; Vitamin Oral tab 1 tab once daily [Active]; Vitamin C 1,000 mg Oral tab daily [Active]; ibuprofen 200 mg Oral cap as needed [Active]; Ventolin Rotahaler/Rotacaps Inhl as needed [Active]; citrical twice a day [Active]; - PMHx: 22:54 Diabetes - NIDDM; Hypertension; Atrial Fib; Hypothyroidism; GERD; High Cholesterol; fc - PSHx: 22:54 Appendectomy; parathyroidism; left wrist; right shoulder surg; Knee surgery; spinal fc fusion; Tubal ligation; Tonsillectomy; - Immunization history:: Last tetanus immunization: unknown. - Social history:: Smoking status: Patient/guardian denies using tobacco. - Ebola Screening: : Patient negative for fever greater than or equal to 101.5 degrees Fahrenheit, and additional compatible Ebola Virus Disease symptoms Patient denies exposure to infectious person Patient denies travel to an Ebola-affected area in the 21 days before illness onset. Screenin:30 Abuse screen: Denies threats or abuse. Nutritional screening: No deficits noted. fc Tuberculosis screening: No symptoms or risk factors identified. Fall Risk None identified. Assessment: 22:50 General: Appears in no apparent distress. comfortable, Behavior is calm, cooperative, aa1 appropriate for age. Pain: Complains of pain in abdomen, right leg and left leg Quality of pain is described as crampy, Pain began 2-3 days ago. Is continuous. Neuro: Level of Consciousness is awake, alert, obeys commands, Oriented to person, place, time, situation, Moves all extremities. Speech is normal, Reports headache. Cardiovascular: Denies chest pain, diaphoresis, palpitations, Heart tones S1 S2 present Rhythm is regular. Respiratory: Airway is patent Respiratory effort is even, unlabored, Respiratory pattern is regular, symmetrical. GI: Abdomen is non-distended, Abd is soft and non tender X 4 quads. Reports nausea, vomiting. : No signs and/or symptoms were reported regarding the genitourinary system. Derm: Skin is intact, is healthy with good turgor, Skin is pink, warm \T\ dry. Musculoskeletal: Circulation, motion, and sensation intact. Capillary refill < 3 seconds. 23:38 Reassessment: Patient appears in no apparent distress at this time. Patient and/or aa1 family updated on plan of care and expected duration. Pain level reassessed. Patient is alert, oriented x 3, equal unlabored respirations, skin warm/dry/pink. Pt still awaiting initial assessment and orders from provider. 02/12 00:03 Reassessment: Patient appears in no apparent distress at this time. GENERAL ACCOUNTING MANAGER at bedside for aa1 initial assessment of pt. 00:30 Reassessment: Pt taken to CT. aa1 00:50 Reassessment: Patient appears in no apparent distress at this time. Patient and/or aa1 family updated on plan of care and expected duration. Pain level reassessed. Patient is alert, oriented x 3, equal unlabored respirations, skin warm/dry/pink. Pt back from CT, awaiting lab results. 02:39 Reassessment: Patient appears in no apparent distress at this time. Patient and/or aa1 family updated on plan of care and expected duration. Pain level reassessed. Patient is alert, oriented x 3, equal unlabored respirations, skin warm/dry/pink. Awaiting provider reassessment. 03:20 Reassessment: Patient appears in no apparent distress at this time. Patient is alert, aa1 oriented x 3, equal unlabored respirations, skin warm/dry/pink. Discussed d/c \T\ f/u instructions with pt \T\ family; denies questions or concerns at this time Patient states feeling better. Vital Signs: 02/11 22:30 BP 174 / 68; Pulse 63; Resp 20; Temp 98.5(O); Pulse Ox 97% on R/A; Weight 77.11 kg (R); fc Height 5 ft. 5 in. (165.10 cm) (R); Pain 7/10; 23:38 BP 149 / 62; Pulse 60; Resp 20; Pulse Ox 95% on R/A; aa1 02/12 00:46 BP 158 / 64; Pulse 66; Resp 18; Pulse Ox 95% on R/A; aa1 01:44 BP 154 / 67; Pulse 63; Resp 18; Pulse Ox 95% on R/A; aa1 02:38 BP 143 / 59; Pulse 62; Resp 18; Pulse Ox 97% on R/A; aa1 03:20 BP 146 / 62; Pulse 62; Resp 18; Pulse Ox 95% on R/A; Pain 0/10; aa1 02/11 22:30 Body Mass Index 28.29 (77.11 kg, 165.10 cm) ED Course: 02/11 22:26 Patient arrived in ED. ds1 22:28 William Kim MD is Private Physician. ds1 22:30 Arm band placed on Patient placed in an exam room, on a stretcher. fc 22:30 Patient has correct armband on for positive identification. Placed in gown. Bed in low fc position. Call light in reach. property assessment monitor on. Pulse ox on. NIBP on. 22:30 No provider procedures requiring assistance completed. fc 22:46 Triage completed. fc 22:51 EKG done, by ED staff, reviewed by Pablito Renae MD. aa1 22:52 Warm blanket given. aa1 23:20 Tony Marin NP is PHCP. pm1 23:20 Pablito Renae MD is Attending Physician. pm1 09/16 00:02 Karen Merida, RN is Primary Nurse. aa1 00:[address] via stretcher. kw1 00:40 CT Head Brain wo Cont In Process Unspecified. EDMS 00:40 CT completed. Patient tolerated procedure well. Patient moved back from CT. kw1 03:00 William Kim MD is Referral Physician. pm1 03:20 IV discontinued, intact, bleeding controlled, No redness/swelling at site. Pressure aa1 dressing applied. Administered Medications: 01:14 Drug: NS 0.9% 500 ml Route: IV; Rate: bolus; Site: left antecubital; aa1 02:00 Follow up: IV Status: Completed infusion aa1 Outcome: 03:00 Discharge ordered by MD. pm1 03:20 Discharged to home via wheelchair, with family. aa1 03:20 Condition: good 03:20 Discharge instructions given to patient, family, Instructed on discharge instructions, follow up and referral plans. Demonstrated understanding of instructions, follow-up care. 03:22 Patient left the ED. aa1 Signatures: Dispatcher [employer] [facility] Karen Merida, RENUKA RN aa1 Bronwyn Oliva RN RN fc [place], Demi ds1 Tony Marin, CRIS GENERAL ACCOUNTING MANAGER pm1 Britney Edward kw1 Corrections: (The following items were deleted from the chart) 02:39 00:50 Reassessment: Patient appears in no apparent distress at this time. Patient aa1 and/or family updated on plan of care and expected duration. Pain level reassessed. Patient is alert/active/playful, equal unlabored respirations, skin warm/dry/pink. Pt back from CT, awaiting lab results aa1
--- NOTE | 2018-02-12 09:02 | RAD REPORT ---
EXAM DESCRIPTION: CT - Head Brain Wo Cont - 02/12/2018 4:35 am CLINICAL HISTORY: Headache A preliminary report was provided at the time of the study and reviewed prior to final report. COMPARISON: None. TECHNIQUE: Axial 5 mm thick images of the head were obtained without IV contrast. All CT scans are performed using dose optimization technique as appropriate and may include automated exposure control or mA/KV adjustment according to patient size. FINDINGS: No intracranial hemorrhage, mass, edema or shift of mid-line structures. No acute infarcti on changes seen. No cortical edema or sulcal effacement. Patient has mild atrophy with ventricular si ze in proportion. Mild to moderate chronic ischemic changes are present. Dense arterial tree calcific ations are present. Mastoid air cells and visualized portions of the paranasal sinuses are clear. No acute bony findings. IMPRESSION: No acute intracranial finding. Mild atrophy and mild to moderate chronic ischemic change.
--- NOTE | 2018-02-13 06:54 | EKG ---
Test Date: 2018-02-11 Test Time: 22:45:26 Heat Transfer Technician: ISAURA MEASUREMENT RESULTS: Intervals: Rate: 61 [place]: 238 QRSD: 74 QT: 444 QTc: 446 [place]: P: 63 [place]: 238 QRS: 5 T: 58 INTERPRETIVE STATEMENTS: Sinus rhythm with 1st degree AV block Otherwise normal ECG Compared to ECG 04/28/2016 20:52:30 No significant changes Electronically Signed On 02-13-18 06:51:24 CDT by Andrés Sherman
== END 2018-02-12 03:22 | disposition home or self-care (01) ==
LOC: ER 22:25
DX: E87.1 Hypo-osmolality and hyponatremia (principal); I10 Essential (primary) hypertension; I48.91 Unspecified atrial fibrillation; E11.9 Type 2 diabetes mellitus without complications; E03.9 Hypothyroidism, unspecified; E78.00 Pure hypercholesterolemia, unspecified; Z79.82 Long term (current) use of aspirin; Z88.5 Allergy status to narcotic agent
CPT/HCPCS: 36415; 70450; 80048; 80076; 81003; 82150; 83690; 85025; 93005; 96360; 99285

== ENCOUNTER 2022-08-08 05:59 | Inpatient (IN) | payer OTHER ==
--- OUTSIDE RECORDS SUMMARY | 2022-08-08 06:02 | XMS REPORT | Continuity of Care Document ---
:1935 Author Organization [facility] t Address [address] [place] [address]. [address] [place] [address] Care Team Providers Name Role Phone BRENDA GREENFIELD Primary Care Physician Unavailable Therapy, Adc Covid Infusion Attending Clinician Unavailable Amairani WHELAN, Saeid White Attending Clinician SAEID BALES Attending Clinician Unavailable Doctor Unassigned, Rosine Attending Clinician Unavailable RADHA HENDERSON Attending Clinician Unavailable Santiago AIRPLANE TESTER, Radha Attending Clinician EBRAHIM RANIA Attending Clinician Unavailable Ebrahim AIRPLANE TESTER, Maria Del Rosario Attending Clinician Only, Ang Db Test Attending Clinician Unavailable Vlad GRAYSON, Mary Ospina Attending Clinician Unavailable Payers Payer Name Policy Type Policy Number Effective Date Expiration Date S ource Problems Condition Condition Condition Status Onset Resolution Last Treating Co mments Source Name Details Category Date Date Treatment Clinician Date Fever Fever Disease Active [facility] 00[facility] Hosp[facility] 00 l Primary Primary Disease Active Methodi hyperparat hyperparat [address] hyroidism hyroidism 00:00: Hosp rita 00 l Osteopenia Osteopenia Disease Active M ethodi of both of both 3-16 st hips hips 00:00: Hospita 00 l Hypercalce Hypercalce Disease Active M ethodi joe joe 06-20 st 00:00: Hospita 00 l Hyperparat Hyperparat Disease Active M ethodi hyroidism hyroidism 06-20 st 00:00: Hospita 00 l 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 06-20 st l l 00:00: Hospita gammopathy gammopathy 00 l of unknown of unknown significan significan ce) ce) Acquired Acquired Disease Active Metho di hypothyroi hypothyroi 1-22 st dism dism 00:00: Hospita 00 l No known No known Disease Unive rs active active ity of problems problems [facility] Allergies, Adverse Reactions, Alerts Allergy Allergy Status Severity Reaction(s) Onset Inactive Treating Comm ents Source Name Type Date Date Clinician Codeine Propensi Active Nausea "vomiting Univ ers ty to and/or 3-16 " ity of adverse Vomiting 00:00: [place] reaction 00 Medical s Branch CODEINE DRUG Active N/V Univers INGREDI 3-16 ity of 00:00: Medical Branch Codeine Propensi Active GI "vomiting Meth rosaura ty to Intolerance 3-16 " st adverse 00:00: Hospita reaction 00 l s to drug Morphine Propensi Active GI 2016-05 "vomiting Met hodi (Pf) ty to Intolerance 2-04 " st adverse 00:00: Hospita reaction 00 l s to drug Morphine Propensi Active Nausea 2016-05 "vomiting Uni vers (Pf) ty to and/or 2-04 " ity of adverse Vomiting 00:00: [place] reaction [facility] s Branch MORPHINE DRUG Active Med N/V 2016-05 Univers (PF) 2-04 ity of 00:00: [place] [address] [facility] Family History Family Member Diagnosis Comments Start Date Stop Date Source Natural father Cancer [facility] Natural mother Stroke [facility] Social History Social Habit Start Date Stop Date Quantity Comments Source Exposure to 2021-10-25 2021-11-04 Yes [facility] SARS-CoV-2 00:00:00 11:03:00 [facility] (event) Branch Tobacco use and 2021-11-04 2021-11-04 Never used Universit y of exposure 00:00:00 00:00:00 [facility] Alcohol intake 2018-12-06 2018-12-06 Current [facility] 00:00:00 00:00:00 non-drinker of alcohol (finding) Sex Ass[birth year] [facility] 00:00:00 00:00:00 Smoking Status Start Date Stop Date Source [facility] Medications Ordered Filled Start Stop Current Ordering Indication Dosage Frequency Signature Comments Components Source Medication Medication Date Date Medication? Clinician (SIG) Name Name milena Yes [id number] 800mg Take 4 Univers r 200 mg 6-08 capsules ity of capsule 00:00: by mouth [place] 00 every 12 Medical (twelve) Branch hours. milena Yes [id number] 800mg Take 4 Univers r 200 mg 6-08 capsules ity of capsule 00:00: by mouth [place] 00 every 12 Medical (twelve) Branch hours. milena Yes [id number] 800mg Take 4 Univers r 200 mg 6-08 capsules ity of capsule 00:00: by mouth [place] 00 every 12 Medical (twelve) Branch hours. milena Yes [id number] 800mg Take 4 Univers r 200 mg 6-08 capsules ity of capsule 00:00: by mouth [place] 00 every 12 Medical (twelve) Branch hours. amLODIPine Yes 5mg QD Take 5 mg Me thodi (NORVASC) 5 7-[address] mg tablet 11:21: daily. Hospit a 50 l atorvastati Yes 10mg QD Take 10 mg Methodi n (LIPITOR) 7-[address] 10 MG 11:21: every Hospita tablet 50 evening. l carvedilol Yes 12.5mg Q.5D Take 12.5 Methodi (COREG) 7-[address] 12.5 MG 11:21: mouth 2 Hospita tablet 50 (two) l times a day with meals. dronedarone Yes 400mg Q.5D Take 400 M ethodi (MULTAQ) 7-[address] 400 mg 11:21: mouth 2 Hospita tablet 50 (two) l times a day with meals. levothyroxi Yes 75ug QD Take 75 Met hodi ne 7-[address] (SYNTHROID, 11:21: mouth Hospi ta LEVOXYL) 75 50 every l mcg tablet morning. lisinopril Yes 20mg QD Take 20 mg M ethodi (PRINIVIL,Z 7-[address] ESTRIL) 20 11:21: daily. Hospi ta mg tablet 50 l omeprazole Yes 20mg QD Take 20 mg M ethodi (PriLOSEC) 7-[address] 20 MG 11:21: daily. Hospita capsule 50 l 2019 Yes 1{tbl} QD Take 1 Metho di vit,calc76- 7-[address] iron-folic 11:21: mouth Hospit a 29 mg iron- 50 daily. l 1 mg tablet per tablet ibuprofen Yes 200mg Q6H Take 200 Met hodi (ADVIL,MOTR 7-[address] [place]) 200 MG 11:21: mouth Hospit a tablet 50 every 6 l (six) hours as needed for mild pain. cetirizine Yes 10mg QD Take 10 mg M ethodi (ZyrTEC) 10 7-[address] MG tablet 11:21: nightly. Hosp rita 50 l acetaminoph Yes 650mg Q4H Take 650 M ethodi en 7-[address] (TYLENOL) 11:21: mouth Hospita 325 MG 50 every 4 l tablet (four) hours as needed. albuterol Yes 2{puff} Q6H Inhale 2 M ethodi (PROAIR 7-[address] HFA,PROVENT 11:21: every 6 Hos [place] 50 (six) l HFA,VENTOLI hours as N HFA) 90 needed for mcg/actuati wheezing. on inhaler SITagliptin Yes 1{tbl} QD Take 1 Me thodi -metformin 7-[address] (JANUMET 11:21: mouth Hospita XR) 50 daily with l 100-1,000 dinner. mg tablet, ER multiphase 24 hr aspirin Yes 81mg QD Take 81 mg Meth rosaura (ECOTRIN) 7-[address] 81 MG 11:21: nightly. Hospita enteric 50 l coated tablet calcium Yes 1000mg Q.5D Take 1,000 Me thodi citrate/vit 7-[address] [place] D3 11:21: mouth 2 Hospita (CITRACAL 50 (two) l REGULAR times a ORAL) day. phosphorate 0 Yes 30mL Q24H Take 30 mL Methodi d 7-[address] carbohydrat 11:21: daily as Ho spita e solution 50 needed l (nausea). Immunizations Ordered Filled Immunization Date Status Comments Sourc e Immunization Name Name BEBTELOVIMAB 2021-11-05 Completed University o f 00:00:00 [facility] Branch KAYKAYB 2021-11-05 Completed University o f 00:00:00 [facility] Vital Signs Vital Name Observation Time Observation Value Comments Source Systolic blood 2021-11-05 22:27:00 172 mm[Hg] Univer sity of pressure [facility] Diastolic blood 2021-11-05 22:27:00 80 mm[Hg] Unive rsity of pressure [place] [facility] Heart rate 2021-11-05 22:27:00 62 /min [facility] [place] [facility] Body temperature 2021-11-05 22:27:00 36 Jayde [facility] [place] [facility] Respiratory rate 2021-11-05 22:27:00 18 /min [facility] [place] [facility] Oxygen saturation in 2021-11-05 22:27:00 97 /min University of Arterial blood by [employer] Pulse oximetry Branch Body height 2021-11-05 11:10:00 167.6 cm [facility] [place] [facility] Body weight 2021-11-05 11:10:00 80.287 kg [facility] [place] [facility] BMI 2021-11-05 11:10:00 28.57 kg/m2 [facility] [place] [facility] Systolic blood 2021-11-04 16:08:00 135 mm[Hg] Univer sity of pressure [place] [facility] Diastolic blood 2021-11-04 16:08:00 74 mm[Hg] Unive rsity of pressure [place] [facility] Heart rate 2021-11-04 16:08:00 68 /min [facility] [place] [facility] Body temperature 2021-11-04 16:08:00 36.39 Jayde [facility] [place] [facility] Respiratory rate 2021-11-04 16:08:00 20 /min [facility] [place] [facility] Body height 2021-11-04 16:08:00 165.1 cm [facility] [place] [facility] Body weight 2021-11-04 16:08:00 80.287 kg [facility] [place] [facility] BMI 2021-11-04 16:08:00 29.45 kg/m2 [facility] [place] [facility] Oxygen saturation in 2021-11-04 16:08:00 97 /min University of Arterial blood by [facility] Pulse oximetry Branch Procedures Procedure Date / Time Performed Performing Clinician Peter antonio IMMTRAC2 CONSENT 2021-11-05 05:01:00 [facility]W 2021-11-04 16:40:00 Radha Henderson o f [facility] Plan of Care Planned Activity Planned Date Details Comments Source Future Scheduled 2022-05-12 COVID-19 VACCINE (#1) [facility] Hospital Test 20:15:51 [code = COVID-19 VACCINE (#1)] Future Scheduled 2022-05-12 SHINGLES VACCINES (1 Met [facility] Hospital Test 20:15:51 of 2) [code = SHINGLES VACCINES (1 of 2)] Future Scheduled 2022-05-12 65+ PNEUMOCOCCAL Methodi Hospital Test 20:15:51 VACCINE (1 - PCV) [code = 65+ PNEUMOCOCCAL VACCINE (1 - PCV)] Future Scheduled 2022-05-12 INFLUENZA VACCINE Method is Hospital Test 20:15:51 [code = INFLUENZA VACCINE] Encounters Start End Encounter Admission Attending Care Care Encounter Source Date/Time Date/Time Type Type Clinicians Facility Department ID 2021-11-05 2021-11-05 Nurse Therapy, Adc Covid Infusion [facility] [id number] Univers 16:00:00 17:00:00 Visit Saeid Bales [id number] ity [facility] [id number] [place] [phone] [facility] 053 Branch 2021-11-05 2021-11-05 Outpatient Bowen BALES [facility] [id number] Univers 16:00:00 16:00:00 SAEID littlejohn of [facility] 2021-11-05 2021-11-05 Orders Doctor WASHBURN [id number] Univers 00:00:00 00:00:00 Only UnassignedMAEGAN [id number] ity [facility] [id number] Lance as [phone] [facility] 009 Branch 2021-11-04 2021-11-04 Outpatient Bowen HENDERSON [facility] [id number] Univers 11:26:09 23:59:00 RADHA ity [place] [facility] 2021-11-04 2021-11-04 Hospital Santiago [facility] [id number] Univers 11:26:09 23:59:00 Encounter Radha HEALTH [id number] ity of [place] [id number] Lance as RADHA?BLEA [phone] [facility] [address] [place] [address] [facility] 2021-11-04 2021-11-04 Outpatient R JOSHPaulo [facility] [id number] Univers 11:00:00 11:45:14 RANIA ity [place] [facility] 2021-11-04 2021-11-04 Urgent Radha Henderson [facility] [id number] Univers 11:00:00 11:45:14 Care Juan Albertobobby Maria Del Rosario [facility] [id number] ity of [place] [id number] Lance as RADHA?BLEA [phone] [facility] [address] [facility] [address] [facility] 2021-11-03 2021-11-03 Laboratory Only, Ang Db Test [facility] 1.2.8 40.114 [id number] Univers 09:00:00 09:15:00 Only Radha Henderson [facility] [id number] ity of [place] [id number] Lance as RADHA?BLEA [id number] [facility] [address] [facility] [address] [facility] 2021-11-03 2021-11-03 Outpatient R SANTIAGO [facility] [id number] Univers 09:00:00 09:00:00 RADHA ity of [facility] 2021-11-03 2021-11-03 Letter MADDISON Chu [id number] Univers 00:00:00 00:00:00 (Out) Mary ISSA [id number] it y of [facility] [id number] [place] as [id number] [address] 2021-11-03 2021-11-03 Orders Doctor WASH[place]URN [id number] Univers 00:00:00 00:00:00 Only UnassignedMAEGAN [id number] ity of Rosine [facility] [id number] Lance as [phone] [facility] 009 Branch Results This patient has no known results.
[2022-08-08] MEDS ORDERED: DICYCLOMINE HCL 20 MG/2 ML AMP IM ONE (07:34)
[2022-08-08] MEDS ORDERED: ONDANSETRON 4 MG/2 ML VIAL ONE (07:34)
[2022-08-08] MEDS ORDERED: NA CHLORIDE 0.9% 1,000 ML ONE ×2 (07:34→09:28)
--- NOTE | 2022-08-08 07:50 | RAD REPORT ---
EXAM DESCRIPTION: RAD - Chest Single View - 08/08/2022 7:14 am CLINICAL HISTORY: ABDOMINAL DISTENTION Chest pain. COMPARISON: Chest Pa And Lat (2 Views) dated 06/26/2019; Chest Single View dated 04/28/2016; CHEST SI NGLE VIEW dated 12/29/2014 FINDINGS: Portable technique limits examination quality. The lungs are grossly clear. The heart is mildly prominent size. No displaced fractures.Hardware is p resent right humerus. IMPRESSION: No acute intrathoracic process suspected.
--- NOTE | 2022-08-08 07:51 | RAD REPORT ---
EXAM DESCRIPTION: CT - Head Brain Wo Cont - 08/08/2022 7:36 am CLINICAL HISTORY: HEADACHE Headache, drowsiness COMPARISON: Head Brain Wo Cont dated 02/12/2018 TECHNIQUE: All CT scans are performed using dose optimization technique as appropriate and may inclu de automated exposure control or mA/KV adjustment according to patient size. FINDINGS: No intracranial hemorrhage, hydrocephalus or extra-axial fluid collection.Mild generalized brain atrophy is present with moderate periventricular and deep white matter chronic microvascular i schemic changes.No areas of brain edema or evidence of midline shift. The paranasal sinuses and mastoids are clear. The calvarium is intact. IMPRESSION: No acute intracranial abnormality.
--- NOTE | 2022-08-08 07:53 | RAD REPORT ---
EXAM DESCRIPTION: CT - Abdomen Pelvis Wo Contrast - 08/08/2022 7:37 am CLINICAL HISTORY: Abdominal pain. ABD PAIN COMPARISON: No comparisons TECHNIQUE: CT imaging of the abdomen and pelvis was performed without contrast. Solid organ, bowel a nd vascular assessment is limited due to lack of IV and oral contrast. All CT scans are performed using dose optimization technique as appropriate and may include automated exposure control or mA/KV adjustment according to patient size. FINDINGS: The lower lung guzman are clear.Small hiatal hernia. The liver, spleen, pancreas, adrenal glands and kidneys are within normal limits for a limited non-co ntrast examination. No bowel obstruction, free air, free fluid or abscess. Nonvisualized appendix. Sigmoid diverticulosis coli without diverticulitis. Diffuse osteopenia. Moderate multilevel degenerative changes are present involving the lumbar spine. IMPRESSION: No acute intra-abdominal or pelvic findings. Sigmoid diverticulosis coli is present without diverticulitis. A limited non-contrast examination was performed as detailed.
[2022-08-08 08:03] LABS: Absolute Lymphocytes (CBC) 2.7 K/uL (0.7-4.9); Lymphocytes % 26.6 % (15.3-44.8); MCV 92.5 fL (80-100); MPV 6.5 fL (7.6-11.3); RBC Red Blood Cell Count 4.75 M/uL (3.86-4.86)
[2022-08-08 08:09] LABS: Protime INR 1.09
[2022-08-08 08:36] LABS: Albumin 4.2 g/dL (3.4-5.0); Bilirubin Direct 0.4 mg/dL (0-0.2); Bilirubin Total 2.6 mg/dL (0.2-1.0); Protein, Total 7.9 g/dL (6.4-8.2); Troponin High Sensitivity 9.6 pg/mL (<58.9)
[2022-08-08 08:37] LABS: Magnesium 1.6 mg/dL (1.6-2.4); Potassium 3.7 mmol/L (3.5-5.1)
[2022-08-08 09:04] LABS: Urine Blood Negative (Negative); Urine Glucose Negative (Negative); Urine Protein Negative (Negative); Urine Specific Gravity 1.015 (1.005-1.030)
[2022-08-08] MEDS ORDERED: AMLODIPINE 10 MG TAB ONE (09:28)
[2022-08-08] MEDS ORDERED: AMLODIPINE 5 MG TAB ONE (09:38)
--- NOTE | 2022-08-08 11:46 | P.HP ---
Patient History Date of Service: 08/08/22 Reason for admission: Hyponatremia History of Present Illness: 86-year-old woman with a past medical history hypothyroidism and diabetes presented to the emergency department with a complaint of nausea vomiting and diarrhea. Symptoms started with diarrhea and generalized weakness 4 days ago. Patient reports loose and mucoid stools, no blood, associated abdominal cramps, days later she started vomiting. She reports poor oral intake, loss of appetit e, denied any fever. She states currently the frequency of extra move her bowel has increased but nothing comes, just more mucoid. Work-up in the emergency department revealed severe hyponatremia with sodium of 114. UA is negative for UTI, no leukocytosis. Patient does not meet criteria for sepsis. She was awake and alert during my examination in the ED. patient is hospitalized for further management. Allergies codeine Allergy (Verified 12/29/14 10:48) Nausea/Vomiting morphine Allergy (Verified 12/29/14 10:48) Nausea/Vomiting - Past Medical/Surgical History -: Atrial fibrillation -: Cataract -: Hypothyroidism -: Diabetes mellitus type 2 -: Appendectomy -: Spinal fusion surgery -: Meniscal tear surgery -: Shoulder surgery -: Parathyroid surgery - Family History Mother -: Stroke - Social History Smoking Status: Never smoker Alcohol use: No Place of Residence: Home Review of Systems Other: Patient denies any shortness of breath or chest pain. She reports headache. Except as documented, all other systems reviewed and negative. Physical Examination - Physical Exam General: Alert, In no apparent distress, Oriented x3 HEENT: Atraumatic, Mucous membr. moist/pink, Sclerae nonicteric Neck: Supple, JVD not distended Respiratory: Clear to auscultation bilaterally, Normal air movement Cardiovascular: No edema, Regular rate/rhythm, Normal S1 S2, No murmurs Capillary refill: <2 Seconds Gastrointestinal: Normal bowel sounds, Soft and benign, Non-distended, No rebound, No guarding, Tenderness (Mild diffuse tenderness) Musculoskeletal: No swelling, No tenderness Integumentary: No rashes, No erythema, No cyanosis Neurological: Normal speech, Normal strength at 5/5 x4 extr, Cranial nerves 3-12 intact Lymphatics: No axilla or inguinal lymphadenopathy - Studies Laboratory Data (last 24 hrs) 08/08/22 07:55: PT 12.0, INR 1.09 08/08/22 07:55: WBC 10.10, Hgb 15.3 H, Hct 44.0, Plt Count 296 08/08/22 07:55: Sodium 114 L*, Potassium 3.7, BUN 9, Creatinine 0.91, Glucose 143 H, Magnesium 1.6, Total Bilirubin 2.6 H, AST 19, ALT 30, Alkaline Phosphatase 74, Lipase 45 Assessment and Plan - Problems (Diagnosis) (1) Hyponatremia Current Visit: Yes Status: Acute (2) Acute gastroenteritis Current Visit: Yes Status: Acute (3) Hypothyroidism (acquired) Current Visit: Yes Status: Acute (4) Type 2 diabetes mellitus Current Visit: Yes Status: Acute (5) Dehydration Current Visit: Yes Status: Acute - Plan Admit patient to the medical floor. Nephrology consulted by the ED provider. Start IV normal saline at 75 ml per hour and monitor BMP every 4 hours. Obtain urine and serum osmolality, urine sodium. Check TSH and lipid panel. Obtain stool studies-fecal leukocyte, stool for C. difficile, Start IV Cipro and Flagyl. Encourage oral rehydration Diet as tolerated Insulin sliding scale for glucose management. Hold Janumet. Hold diuretics. Continue current dose Synthroid Continue Multaq for A-fib Continue aspirin. It appears patient is not anticoagulated for A-fib. - Advance Directives Does patient have a Living Will: No Does patient have a Durable POA for Healthcare: No
[2022-08-08 13:34] VITALS: BMI 28.3
[2022-08-08] MEDS ORDERED: ACETAMINOPHEN 500 MG TAB PO PRN (14:49)
[2022-08-08] MEDS ORDERED: NA CHLORIDE 0.9% 1,000 ML IV SCH (14:49)
[2022-08-08] MEDS ORDERED: ONDANSETRON 4 MG/2 ML VIAL IV PRN (14:49)
[2022-08-08] MEDS: INSULIN -REGULAR HUMAN 50 UNIT/0.5 ML ML SQ SCH ×3 (14:49→20:21)
[2022-08-08 14:51] LABS: Potassium 3.1 mmol/L (3.5-5.1)
[2022-08-08] MEDS ORDERED: MAGNESIUM SULFATE 1 gm IVPB 1 GM/100 ML BAG IV ONE (15:00)
[2022-08-08] MEDS ORDERED: ALBUTEROL 2.5 MG/3 ML NEB SOL NEB PRN (15:13)
[2022-08-08 15:17] LABS: Thyroid Stimulating Hormone 2.06 uIU/mL (0.358-3.740)
[2022-08-08] MEDS ORDERED: POTASSIUM CL SA 10 MEQ TAB PO ONE (15:20)
[2022-08-08] MEDS: carvediloL 12.5 MG TAB PO SCH ×2 (15:36→21:17)
[2022-08-08] MEDS: ACETAMINOPHEN 500 MG TAB PO PRN ×2 (15:36→21:08)
[2022-08-08] MEDS ORDERED: LORATADINE 10 MG TAB PO PRN (16:00)
[2022-08-08] MEDS ORDERED: D5W 1,000 ML IV SCH (18:00)
[2022-08-08 19:23] LABS: Potassium 3.5 mmol/L (3.5-5.1)
--- NOTE | 2022-08-08 19:31 | CON ---
Date of Consultation: 08/08/2022 Reason For Consult: Hyponatremia. History Of Present Illness: Ms. Garrett is an 86-year-old female with past medical history signific ant for history of hypertension, lumbar fusion, parathyroidectomy for hypercalcemia, hypothyroidism, and diabetes who presented to the Emergency Department with complaints of nausea, vomiting, and diarr hea since the last 4 days prior to admission. The patient states that the symptoms started with diar vickie, which had progressed to generalized weakness and nausea and vomiting. She reports initially lo ose watery stools, which turned into mucoid stool. She hence was brought to the Emergency Department for further evaluation. She was found to have hypertension with severe hyponatremia with a sodium o f 114 on admission and hence Nephrology is being consulted. She had received some fluid resuscitatio n before the sodium was drawn. Her urine sodium was noted to be elevated to 50. She is currently on normal saline and repeat labs are pending. Her daughter is at bedside with her. The patient raven lobo is reporting back pain associated with some headache, but otherwise no other issues noted. Past Medical History: Significant for history of atrial fibrillation, hypothyroidism, type 2 diabete s, appendectomy, spinal fusion, meniscal tear, shoulder surgery and parathyroidectomy. Family History: Noncontributory. Social History: No history of smoking or alcohol use reported. She was treated for bronchitis exace rbation about [address] Kim, her primary care doctor. Review of Systems: As per history of present illness. She is complaining of headache and backache, but otherwise denies any other complaints. Physical Examination: Vital Signs: At this time are showing temperature of 98.1, pulse rate of 66, respiratory rate of 18, and blood pressure 161/65. General: She appears in no acute distress. HEENT: Atraumatic head. Lungs: Clear to auscultation. Abdomen: Soft and nontender. Extremities: No evidence of edema. Neurologic: She is alert, awake, and oriented x3. She has no focal motor neurological deficits. Current Medications: Include Tylenol p.r.n. for pain, amlodipine 2.5 mg daily, atorvastatin, carvedi lol 12.5 mg b.i.d., Multaq, loratadine, and normal saline at 75 cc an hour. Home Medications: Have been reviewed in detail. Laboratory Data: At this time are showing sodium of 114, potassium of 3.7, chloride of 81, BUN of 9, and creatinine of 0.91. CBC showing stable hemoglobin, hematocrit, and platelet count. She has had a CT abdomen and pelvis that showed no acute findings with sigmoid diverticulosis without diverticul itis. She has also had a chest x-ray done without any acute findings. Impression: 1.Acute hyponatremia, likely acute hyponatremia secondary to volume losses. Her urine sodium is hig h; however, that was drawn after she was given normal saline. I am unsure if that represents a true random urine sodium. We will continue with hydration with normal saline at 75 cc an hour and repeat another sodium again. If the sodium drops, I would consider possible underlying syndrome of inapprop riate secretion of antidiuretic hormone. However, clinically she looks volume depleted and also hist ory suggests volume depletion. We will follow up closely. 2.Hypertension. Okay to resume amlodipine and Coreg. 3.Atrial fibrillation, rate controlled. 4.Diarrhea, improving. Continue to monitor closely clinically. No need for any further antibiotics at this time. We will follow up closely. Thank you very much for this consultation. Plan was updated with the patient and her family at [facility]. All questions were answered. VV/MODL Voice ID: [id number] Report ID: [id number]
[2022-08-08] MEDS: CALCIUM CARBONATE 500 MG TAB PO SCH (20:21)
[2022-08-08] MEDS: DRONEDARONE 400 MG TABLET PO SCH (20:21)
[2022-08-08] MEDS ORDERED: ATORVASTATIN 10 MG TAB PO SCH (21:00)
[2022-08-08 23:27] LABS: Potassium 3.6 mmol/L (3.5-5.1)
[2022-08-09 01:04] VITALS: O2SAT 98
[2022-08-09 03:21] LABS: Absolute Lymphocytes (CBC) 3.6 K/uL (0.7-4.9); Hematocrit 38.9 % (36.0-45.0); MCV 93.9 fL (80-100); RBC Red Blood Cell Count 4.14 M/uL (3.86-4.86)
[2022-08-09 03:32] LABS: Magnesium 2.1 mg/dL (1.6-2.4); Phosphorus 3.4 mg/dL (2.5-4.9); Potassium 3.4 mmol/L (3.5-5.1)
[2022-08-09] MEDS ORDERED: PANTOPRAZOLE 40MG TABLET PO SCH (06:30)
[2022-08-09] MEDS ORDERED: LEVOTHYROXINE SOD 0.075 MG TAB PO SCH (06:30)
[2022-08-09 06:55] LABS: Potassium 3.8 mmol/L (3.5-5.1)
[2022-08-09] MEDS: INSULIN -REGULAR HUMAN 50 UNIT/0.5 ML ML SQ SCH ×3 (07:30→16:30)
[2022-08-09] MEDS: CALCIUM CARBONATE 500 MG TAB PO SCH (08:03)
[2022-08-09] MEDS: carvediloL 12.5 MG TAB PO SCH ×3 (08:04→17:00)
[2022-08-09] MEDS: DRONEDARONE 400 MG TABLET PO SCH (08:04)
[2022-08-09] MEDS ORDERED: ENOXAPARIN 40 MG/0.4 ML SQ SCH (09:00)
[2022-08-09] MEDS ORDERED: POTASSIUM CL SA 10 MEQ TAB PO ONE (09:00)
[2022-08-09] MEDS ORDERED: FLUTICASONE 50MCG NASAL SPRAY NAS SCH (09:00)
[2022-08-09] MEDS ORDERED: ASCORBIC ACID 500 MG TABLET PO SCH (09:00)
[2022-08-09] MEDS ORDERED: MULTIVIT W/ MINERAL TAB PO SCH (09:00)
[2022-08-09] MEDS ORDERED: AMLODIPINE 2.5 MG TAB PO SCH (09:00)
[2022-08-09] MEDS ORDERED: ASPIRIN EC 81 MG TAB PO SCH (09:00)
[2022-08-09 11:58] LABS: Potassium 4.1 mmol/L (3.5-5.1)
[2022-08-09 12:30] LABS: Urine Bilirubin NEGATIVE (Negative); Urine Blood Negative (Negative); Urine Clarity Clear (Clear); Urine Color Light-Yellow (Yellow); Urine Glucose NEGATIVE (Negative); Urine Protein NEGATIVE (Negative); Urine Urobilinogen Normal (Normal); Urine pH 6.5 (5.0-7.0)
[2022-08-09] MEDS ORDERED: NA CHLORIDE 0.9% 1,000 ML IV SCH (13:00)
--- NOTE | 2022-08-09 13:05 | EKG ---
Test Date: 2022-08-08 Test Time: 07:28:27 Multi Operation Forming Machine Setter: DUNG MEASUREMENT RESULTS: Intervals: Rate: 61 NM: 222 QRSD: 82 QT: 480 QTc: 483 [place]: P: 42 NM: 222 QRS: 12 T: 59 INTERPRETIVE STATEMENTS: Sinus rhythm with 1st degree AV block Otherwise normal ECG Compared to ECG 02/11/2018 22:45:26 No significant changes Electronically Signed On 08-09-22 13:02:41 CDT by Andrew Poole
--- NOTE | 2022-08-09 15:09 | P.DS ---
Admission Date: 08/08/22 Discharge Date: 08/09/22 Disposition: ROUTINE DISCHARGE Discharge Condition: FAIR Reason for Admission: Hyponatremia - Problems (1) Hyponatremia Current Visit: Yes Status: Acute (2) Acute gastroenteritis Current Visit: Yes Status: Acute (3) Hypothyroidism (acquired) Current Visit: Yes Status: Acute (4) Type 2 diabetes mellitus Current Visit: Yes Status: Acute (5) Dehydration Current Visit: Yes Status: Acute Brief History of Present Illness: 86-year-old woman with a past medical history hypothyroidism and diabetes presented to the emergency department with a complaint of nausea vomiting and diarrhea. Symptoms started with diarrhea and generalized weakness 4 days ago. Patient reports loose and mucoid stools, no blood, associated abdominal cramps, days later she started vomiting. She reports poor oral intake, loss of appetite, denied any fever. She states currently the frequency of extra move her bowel has increased but nothing comes, just more mucoid. Work-up in the emergency department revealed severe hyponatremia with sodium of 114. UA is negative for UTI, no leukocytosis. Patient does not meet criteria for sepsis. She was awake and alert during my examination in the ED. Patient was hospitalized for further management. Hospital Course: Patient admitted to the medical floor and treated with IV normal saline for the hyponatremia. She was seen in consultation by nephrology. Patient's serum sodium improved significantly with IV normal saline hydration. She became asymptomatic. Sodium level improved to 129. At this point patient denies any complaint, vitals are stable she is tolerating a diet, no diarrhea or nausea or vomiting. She request to go home today. Patient is discharged per her request. She will follow-up with nephrology within a week to recheck her BMP. Vital Signs/Physical Exam: Temp Pulse Resp BP Pulse Ox 97.1 F 62 16 128/61 97 08/09/22 11:58 08/09/22 11:58 08/09/22 11:58 08/09/22 11:58 08/09/22 11:58 General: Alert, In no apparent distress, Oriented x3 HEENT: Mucous membr. moist/pink Neck: JVD not distended Respiratory: Clear to auscultation bilaterally, Normal air movement Cardiovascular: No edema, Regular rate/rhythm, Normal S1 S2 Gastrointestinal: Normal bowel sounds, Soft and benign, No tenderness Musculoskeletal: No swelling Integumentary: No rashes, No tenderness/swelling, No cyanosis Neurological: Normal strength at 5/5 x4 extr, Cranial nerves 3-12 intact Laboratory Data at Discharge: WBC 8.90 K/uL (4.3-10.9) 08/09/22 02:40 Hgb 13.4 g/dL (12.0-15.0) D 08/09/22 02:40 Hct 38.9 % (36.0-45.0) 08/09/22 02:40 Plt Count 253 K/uL (152-406) 08/09/22 02:40 PT 12.0 SECONDS (9.5-12.5) 08/08/22 07:55 INR 1.09 08/08/22 07:55 Sodium 125 mmol/L (136-145) L 08/09/22 11:30 Potassium 4.1 mmol/L (3.5-5.1) 08/09/22 11:30 BUN 9 mg/dL (7-18) 08/09/22 11:30 Creatinine 0.71 mg/dL (0.55-1.02) 08/09/22 11:30 Glucose 108 mg/dL (74-106) H 08/09/22 11:30 Phosphorus 3.4 mg/dL (2.5-4.9) 08/09/22 02:40 Magnesium 2.1 mg/dL (1.6-2.4) 08/09/22 02:40 Total Bilirubin 2.6 mg/dL (0.2-1.0) H 08/08/22 07:55 AST 19 U/L (15-37) 08/08/22 07:55 ALT 30 U/L (13-56) 08/08/22 07:55 Alkaline Phosphatase 74 U/L (45-117) 08/08/22 07:55 Triglycerides Cancelled 08/08/22 14:49 Cholesterol Cancelled 08/08/22 14:49 HDL Cholesterol Cancelled 08/08/22 14:49 Cholesterol/HDL Ratio Cancelled 08/08/22 14:49 Lipase 45 U/L (13-75) 08/08/22 07:55 Home Medications: Acetaminophen [Tylenol Extra Strength] 1 tab PO PRN PRN 08/08/22 Albuterol Sulfate [Albuterol Sulfate Hfa] 8.5 gm IH PRN PRN 08/08/22 Amlodipine [Norvasc*] 2.5 mg PO DAILY 08/08/22 Ascorbic Acid [Vitamin C] 1 tab PO DAILY 08/08/22 Aspirin [Aspirin EC 81 MG] 1 tab PO DAILY 08/08/22 Atorvastatin Calcium [Lipitor*] 10 mg PO BEDTIME 08/08/22 Calcium Carbonate [Calcium] 2 tab PO BID 08/08/22 Dronedarone HCl [Multaq] 1 tab PO BID 08/08/22 Fluticasone [Flonase 50MCG Nasal [place]*] 2 sprays NS DAILY 08/08/22 Levothyroxine Sodium 1 tab PO DAILY 08/08/22 Loratadine 1 tab PO DAILY PRN 08/08/22 Multivitamin 1 tab PO DAILY 08/08/22 Omeprazole 20 mg PO DAILY 08/08/22 Sitagliptin Phos/Metformin HCl [Janumet Xr 100-1,000 mg Tablet] 100 - 1,000 mg PO DAILY 08/08/22 carvediloL [Coreg*] 12.5 mg PO TID 08/08/22 lisinopriL [Prinivil*] 1 tab PO DAILY 08/08/22 Diet: ADA Activity: Ad marianela Followup: Serafin Kim MD [Primary Care Provider] - 1-2 Weeks Angel Mancini DO [ACTIVE - CAN ADMIT] - 1 Week Time spent managing pt's care (in minutes): 36
[2022-08-09 16:12] VITALS: BP 164/67; TEMP 97.2
[2022-08-09] MEDS ORDERED: DRONEDARONE 400 MG TABLET PO SCH (17:00)
--- NOTE | 2022-08-09 20:41 | P.PN ---
Date of Service: 08/09/22 Vital Signs Temp Pulse Resp BP Pulse Ox 97.2 F 68 16 164/67 H 95 08/09/22 16:00 08/09/22 16:00 08/09/22 16:00 08/09/22 16:00 08/09/22 16:00 Assessment/ Plan: Nephrology No dyspnea No chest pain Feeling better. Nausea resolved and appetite improving. No acute events overnight Vitals, medications, blood work and imaging reviewed in the chart. NAD. NCAT. MMM. Neck supple. Normal respiratory effort. RRR. Abd ND. No C/C/E. No rash. AAO. Normal speech. Ambulatory Hypovolemic Hyponatremia -Improving with IVF and oral intake -Encourage nutrition Hypokalemia -Resolved with repletion HTN -Restart Lisinopril DM II -Restart Januvia Acute gastroenteritis -Supportive care as ordered -Advance diet as tolerated -Fabiola caban Case reviewed with Dr. Walton
== END 2022-08-09 17:31 | disposition home or self-care (01) | DRG 641 ==
LOC: ER 05:59 → ERHOLD 09:55 → 2ND 13:26
PROVIDERS: ADMIT Internal Medicine; ATTEND Internal Medicine
DX: E87.1 Hypo-osmolality and hyponatremia (principal); E03.9 Hypothyroidism, unspecified; E11.9 Type 2 diabetes mellitus without complications; E87.6 Hypokalemia; I48.91 Unspecified atrial fibrillation; I10 Essential (primary) hypertension; E86.1 Hypovolemia; K52.9 Noninfective gastroenteritis and colitis, unspecified; E86.0 Dehydration; Z88.5 Allergy status to narcotic agent; Z79.82 Long term (current) use of aspirin; Z90.49 Acquired absence of other specified parts of digestive tract; Z79.890 Hormone replacement therapy; Z79.899 Other long term (current) drug therapy; Z20.822 Contact with and (suspected) exposure to COVID-19
CPT/HCPCS: 36415; 70450; 71045; 74176; 80048; 80061; 80076; 81003; 82947; 83690; 83735; 83880; 83935; 84100; 84300; 84443; 84484; 85025; 85610; 93005; 96361; 96372; 96374; 99285; J0500; J1650; J2405; J3475; J7030; U0003